=== PATIENT | male | born 1995 | race Caucasian/White ===

== ENCOUNTER 2023-01-09 22:08 | Emergency (ER) | payer OTHER ==
--- OUTSIDE RECORDS SUMMARY | 2023-01-09 22:11 | XMS REPORT | Continuity of Care Document ---
:1995 Author Organization [facility] t Address [address] [place] [address] [place] [id number] Care Team Providers Name Role Phone PCP, PATIENT DOES NOT HAVE A Primary Care Physician UnavailGABINO Grimes Attending Clinician Unavailable Gabino Womack MD Attending Clinician MIKE BALL Attending Clinician Unavailable Mike Ball MD Attending Clinician ESVIN TINAJERO Attending Clinician Unavailable Esvin Akbar Attending Clinician GABINO WOMACK Admitting Clinician Unavailable Payers Payer Name Policy Type Policy Number Effective Date Expiration Date S [place] MEDICAID GENERIC [id number] 2021 00:00:00 Problems Condition Condition Condition Status Onset Resolution Last Treating Co mments Source Name Details Category Date Date Treatment Clinician Date Asthma Asthma Disease Active Univers 5-08 ity of 00:00: [place] [facility] Obesity Obesity Disease Active Univers 2-17 ity of 00:00: [place] 00 [facility] Acne Acne Disease Active Univers 2-17 ity of 00:00: [place] 00 [facility] Ingrown Ingrown Disease Active Univers toenail toenail 2-17 ity of 00:00: 00 Medical Branch Allergies, Adverse Reactions, Alerts Allergy Allergy Status Severity Reaction(s) Onset Inactive Treating Comm ents Source Name Type Date Date Clinician Amoxicil Propensi Active Diarrhea Univ ers singh ty to 01-23 ity of adverse 00:00: [place] reaction 00 Medical s Branch AMOXICIL DRUG Active Diarrhea 2022-0 Univer s SINGH INGREDI 6-07 ity of 00:00: [place] 00 Medical Branch Minocycl Propensi Active Hives Univer s ine ty to 2-16 ity of adverse 00:00: [place] reaction 00 Medical s Branch Tetracyc Propensi Active Hives Univer s line ty to 2-16 ity of adverse 00:00: [place] reaction 00 Medical s Branch MINOCYCL DRUG Active Hives Univers INE INGREDI 2-16 ity of 00:00: [place] 00 Medical Branch TETRACYC DRUG Active Hives 2011- Univers LINE INGREDI 2-16 ity of 00:00: [place] 00 Medical Branch Social History Social Habit Start Date Stop Date Quantity Comments Source Exposure to 2022-09-30 2022-10-10 Not sure [facility] SARS-CoV-2 00:00:00 20:20:00 [facility] (event) Branch Alcohol intake 2022-02-27 2022-02-27 Current University 00:00:00 00:00:00 non-drinker of [facility] alcohol Branch (finding) Sex Ass[birth year] At [birth year] Universit y of 00:00:00 00:00:00 [facility] Smoking Status Start Date Stop Date Source Never smoked tobacco [facility] Medications Ordered Filled Start Stop Current Ordering Indication Dosage Frequency Signature Comments Components Source Medication Medication Date Date Medication? Clinician (SIG) Name Name benzonatate Yes [id number] 200mg Take 1 Univers 200 mg 2-22 capsule by ity of capsule 00:00: mouth 3 [place] 00 (three) Medical times Branch daily as needed for Cough. ibuprofen Yes [id number] 800mg Take 1 U nivers 800 mg 2-22 tablet by ity of tablet 00:00: mouth [place] 00 every 8 Medical (eight) Branch hours as needed for Pain (scale 4-6) or Temp > 38.5 C. meclizine 2021-08 No 25mg 25 mg, Unive rs (TRAVEL-EAS 0-13 10-13 Oral, ity of E 03:00: 03:09 ONCE, 1 [place] (MECLIZINE) 00 :00 dose, On [facility] ) tablet 25 Wed Branch mg 05/30/22 at 2200, AWILDA ketorolac 2021-08 No 30mg 30 mg, Unive rs (TORADOL) 0-13 10-13 Slow IV ity of injection 03:00: 02:09 Push, [place] 30 mg 00 :00 ONCE, 1 Medical dose, On Branch Sat05/30/22 at 2200, Routine cefTRIAXone 2021-08 No 500mg 500 mg, U nivers (ROCEPHIN) 0-13 10-13 Intramuscu it y of injection 02:45: 02:14 lar, ONCE, [place] 500 mg 00 :00 1 dose, On Medical Sat05/30/22 at 2145, AWILDA
Re ason for Anti-Infec tive: Empiric Therapy for Suspected Infection< br>Empiric Therapy Site: Urine
D uration of therapy: 72 hours azithromyci 2021-08 No 1000mg 1,000 mg, Univers n 0-13 10-13 Oral, ity of (ZITHROMAX) 02:00: 02:11 ONCE, 1 [place] tablet 00 :00 dose, On Medical 1,000 mg [facility] 05/30/22 at 2100, AWILDA
Re ason for Anti-Infec tive: Empiric Therapy for Suspected Infection< br>Empiric Therapy Site: Urine
D uration of therapy: 72 hours meclizine 2021-08 Yes [id number] 25mg Take 1 U nivers 25 mg 0-12 tablet by ity of tablet 00:00: mouth [place] 00 every 6 Medical (six) Branch hours. meclizine 2021-08 Yes [id number] 25mg Take 1 U nivers 25 mg 0-12 tablet by ity of tablet 00:00: mouth [place] 00 every 6 Medical (six) Branch hours. azithromyci 2021- No 500mg 500 mg, U nivers n 6-08 06-08 Oral, ity of (ZITHROMAX) 03:30: 03:39 ONCE, 1 [place] tablet 500 00 :00 dose, On Medic al mg [facility] 01/23/22 Branch at 2230, AWILDA
Re ason for Anti-Infec tive: Documented Infection< br>Documen amaya Infection Site: Urine
D uration of Therapy: 7 days cefTRIAXone Yes 500mg 500 mg, Un dewayne (ROCEPHIN) 6-08 Intramuscu ity of injection 03:15: lar, Q24H, [place] 500 mg 00 First dose Medical on Sat Branch 01/23/22 at 2215, Until Discontinu ed, AWILDA
Re ason for Anti-Infec tive: Empiric Therapy for Suspected Infection< br>Empiric Therapy Site: Urine<b r>Duration of therapy: 72 hours metroNIDAZO 2021- No [id number] 500mg Take 1 Univers LE 500 mg 01-23 06-15 tablet by ity of tablet 00:00: 04:59 mouth 2 [place] 00 :00 (two) Medical times Branch daily for 7 days. ibuprofen 2012-08 Yes [id number] 800mg Take 1 Tab Univers (MOTRIN) 0-17 by mouth 3 ity o f 800 mg 00:00: (three) [place] tablet 00 times Medical daily with Branch meals. ibuprofen 2012-08 Yes [id number] 800mg Take 1 Tab Univers (MOTRIN) 0-17 by mouth 3 ity o f 800 mg 00:00: (three) [place] tablet 00 times Medical daily with Branch meals. ibuprofen 2012-08 Yes [id number] 800mg Take 1 Tab Univers (MOTRIN) 0-17 by mouth 3 ity o f 800 mg 00:00: (three) [place] tablet 00 times Medical daily with Branch meals. fluticasone Yes [id number] 2{spray Use 2 Univers (FLONASE) 9-18 } Sprays in ity o f 50 00:00: each [place] mcg/actuati 00 nostril Medic al on nasal daily. Use Branc h spray alternate hand to administer albuterol Yes [id number] 2{puff} Inhale 2 Univers (VENTOLIN) 9-18 Puffs ity of 90 00:00: every 4 [place] mcg/actuati 00 (four) Medica l on inhaler hours as Branc h needed for Wheezing or Shortness of Breath. codeine-gua Yes [id number] 5mL Take 5 mL Univers ifenesin 9-18 by mouth ity of (ROBITUSSIN 00:00: every 6 [place] as AC) 10-100 00 (six) Medical mg/5 mL hours as Branch solution needed for Cough. fluticasone Yes [id number] 2{spray Use 2 Univers (FLONASE) 9-18 } Sprays in ity o f 50 00:00: each [place] mcg/actuati 00 nostril Medic al on nasal daily. Use Branc h spray alternate hand to administer albuterol Yes [id number] 2{puff} Inhale 2 Univers (VENTOLIN) 9-18 Puffs ity of 90 00:00: every 4 [place] mcg/actuati 00 (four) Medica l on inhaler hours as Branc h needed for Wheezing or Shortness of Breath. codeine-gua Yes [id number] 5mL Take 5 mL Univers ifenesin 9-18 by mouth ity of (ROBITUSSIN 00:00: every 6 [place] AC) 10-100 00 (six) Medical mg/5 mL hours as Branch solution needed for Cough. fluticasone Yes [id number] 2{spray Use 2 Univers (FLONASE) 9-18 } Sprays in ity o f 50 00:00: each [place] mcg/actuati 00 nostril Medic al on nasal daily. Use Branc h spray alternate hand to administer albuterol Yes [id number] 2{puff} Inhale 2 Univers (VENTOLIN) 9-18 Puffs ity of 90 00:00: every 4 [place] mcg/actuati 00 (four) Medica l on inhaler hours as Branc h needed for Wheezing or Shortness of Breath. codeine-gua Yes [id number] 5mL Take 5 mL Univers ifenesin 9-18 by mouth ity of (ROBITUSSIN 00:00: every 6 [place] AC) 10-100 00 (six) Medical mg/5 mL hours as Branch solution needed for Cough. azithromyci Yes [id number] 500mg Take 1 Tab Univers n 5-08 by mouth ity of (ZITHROMAX) 00:00: daily. [place] 500 mg 00 Medical tablet Branch codeine-gua Yes [id number] 5mL Take 5-10 Univers ifenesin 5-08 mL by ity of (CHERATUSSI 00:00: mouth [place] N AC) 00 every 6 Medical 10-100 mg/5 (six) Branch mL solution hours as needed for Cough. azithromyci Yes [id number] 500mg Take 1 Tab Univers n 5-08 by mouth ity of (ZITHROMAX) 00:00: daily. [place] 500 mg 00 Medical tablet Branch codeine-gua Yes [id number] 5mL Take 5-10 Univers ifenesin 5-08 mL by ity of (CHERATUSSI 00:00: mouth [place] N AC) 00 every 6 Medical 10-100 mg/5 (six) Branch mL solution hours as needed for Cough. azithromyci Yes [id number] 500mg Take 1 Tab Univers n 5-08 by mouth ity of (ZITHROMAX) 00:00: daily. [place] 500 mg 00 Medical tablet Branch codeine-gua Yes [id number] 5mL Take 5-10 Univers ifenesin 5-08 mL by ity of (CHERATUSSI 00:00: mouth [place] N AC) 00 every 6 Medical 10-100 mg/5 (six) Branch mL solution hours as needed for Cough. ibuprofen Yes 800mg Take 1 Tab U nivers (MOTRIN) 2-28 by mouth ity of 800 mg 00:00: every 8 [place] tablet 00 (eight) Medical hours as Branch needed for Pain (scale 4-6). ibuprofen Yes 800mg Take 1 Tab U nivers (MOTRIN) 2-28 by mouth ity of 800 mg 00:00: every 8 [place] tablet 00 (eight) Medical hours as Branch needed for Pain (scale 4-6). ibuprofen Yes 800mg Take 1 Tab U nivers (MOTRIN) 2-28 by mouth ity of 800 mg 00:00: every 8 [place] tablet 00 (eight) Medical hours as Branch needed for Pain (scale 4-6). albuterol Yes [id number] 2.5mg Inhale 0.5 Univers 2.5 mg/0.5 2-14 mL every 4 ity of mL 00:00: (four) [place] nebulizer 00 hours as Medica l solution needed for Branc h Wheezing or Shortness of Breath. albuterol Yes [id number] 2.5mg Inhale 0.5 Univers 2.5 mg/0.5 2-14 mL every 4 ity of mL 00:00: (four) [place] nebulizer 00 hours as Medica l solution needed for Branc h Wheezing or Shortness of Breath. albuterol Yes [id number] 2.5mg Inhale 0.5 Univers 2.5 mg/0.5 2-14 mL every 4 ity of mL 00:00: (four) [place] nebulizer 00 hours as Medica l solution needed for Branc h Wheezing or Shortness of Breath. fexofenadin Yes [id number] 180mg Take 1 Tab Univers e (DOMONIQUE) 1-04 by mouth ity of 180 mg 00:00: daily. [place] tablet [facility] fexofenadin Yes [id number] 180mg Take 1 Tab Univers e (DOMONIQUE) 1-04 by mouth ity of 180 mg 00:00: daily. [place] tablet [facility] fexofenadin Yes [id number] 180mg Take 1 Tab Univers e (DOMONIQUE) 1-04 by mouth ity of 180 mg 00:00: daily. [place] tablet [facility] Immunizations Ordered Filled Immunization Date Status Comments [facility] e Immunization Name Name Influenza Virus 2013-06-04 Completed Universit y of Vaccine (3+ yrs) 00:00:00 [facility] Influenza Virus 2013-06-04 Completed Universit y of Vaccine (3+ yrs) 00:00:00 [facility] Influenza Virus 2013-06-04 Completed Universit y of Vaccine (3+ yrs) 00:00:00 [facility] TDAP (ADACEL) 2013-04-10 Completed University of VACCINE 00:00:00 [facility] TDAP (ADACEL) 2013-04-10 Completed University of VACCINE 00:00:00 [facility] TDAP (ADACEL) 2013-04-10 Completed University of VACCINE 00:00:00 [facility] Influenza Virus 2012-05-26 Completed Universit y of Vaccine 00:00:00 [facility] Influenza Virus 2012-05-26 Completed Universit y of Vaccine 00:00:00 [facility] Influenza Virus 2012-05-26 Completed Universit y of Vaccine 00:00:00 [facility] Vital Signs Vital Name Observation Time Observation Value Comments Source Systolic blood 2022-10-11 02:21:00 138 mm[Hg] Univer sity of pressure [facility] Diastolic blood 2022-10-11 02:21:00 84 mm[Hg] Unive rsity of pressure [place] [facility] Heart rate 2022-10-11 02:21:00 81 /min [facility] [place] [facility] Body temperature 2022-10-11 02:21:00 37 Dianna Univ ersity of [place] [facility] Respiratory rate 2022-10-11 02:21:00 20 /min Univ ersity of [place] [facility] Body height 2022-10-11 02:21:00 177.8 cm [facility] [place] [facility] Body weight 2022-10-11 02:21:00 127.007 kg [facility] [place] [facility] BMI 2022-10-11 02:21:00 40.18 kg/m2 Universi ty of [place] [facility] Oxygen saturation in 2022-10-11 02:21:00 98 /min University of Arterial blood by [place] [employer] [facility] Pulse oximetry Branch Systolic blood 2022-05-31 04:00:00 120 mm[Hg] Univer sity of pressure [place] [facility] Diastolic blood 2022-05-31 04:00:00 68 mm[Hg] Unive rsity of pressure [place] [facility] Heart rate 2022-05-31 04:00:00 72 /min Universi ty of [place] [facility] Oxygen saturation in 2022-05-31 04:00:00 100 /min University of Arterial blood by [place] [employer] [facility] Pulse oximetry Branch Respiratory rate 2022-05-31 03:45:00 18 /min Univ ersity of [place] [facility] Body temperature 2022-05-31 01:20:00 36.72 Dianna Univ ersity of [place] [facility] Body height 2022-05-31 01:18:00 177.8 cm Universi ty of [place] [facility] Body weight 2022-05-31 01:18:00 127.007 kg [facility] [place] [facility] BMI 2022-05-31 01:18:00 40.18 kg/m2 [facility] [place] [facility] BMI 2022-01-24 01:27:00 39.05 kg/m2 [facility] [place] [facility] Oxygen saturation in 2022-01-24 01:27:00 96 /min University of Arterial blood by [place] [employer] [facility]ac Pulse oximetry Branch Systolic blood 2022-01-24 01:27:00 163 mm[Hg] Univer sity of pressure [place] [facility] Diastolic blood 2022-01-24 01:27:00 80 mm[Hg] Unive rsity of pressure [facility] Heart rate 2022-01-24 01:27:00 68 /min [facility] Body temperature 2022-01-24 01:27:00 36.67 Dianna [facility] Respiratory rate 2022-01-24 01:27:00 20 /min [facility] Body height 2022-01-24 01:27:00 180.3 cm [facility] Body weight 2022-01-24 01:27:00 127.007 kg [facility] Procedures Procedure Date / Time Performed Performing Clinician Sour e RAPID INFLUENZA A/B 2022-10-11 02:26:00 Gabino Womack [facility] COVID-19 (ID NOW RAPID 2022-10-11 02:26:00 Gabino Womack [facility] TESTING) Medical Branch NOTICE OF PRIVACY 2022-10-11 02:10:30 Doctor Unassigned, No [facility] Medical [place] CONSENT/REFUSAL FOR 2022-10-11 02:10:04 Doctor Unassigned, No Un iversity of [place] DIAGNOSIS AND Name Medical Branch TREATMENT COMP. METABOLIC PANEL 2022-05-31 02:09:00 [facility] ([id number]) Medical [place] CBC WITH DIFF 2022-05-31 02:09:00 [facility] URINALYSIS 2022-05-31 02:09:00 [facility] CONSENT/REFUSAL FOR 2022-05-31 01:05:43 Doctor Unassigned, No [facility] [place] DIAGNOSIS AND Name Medical Branch TREATMENT URINALYSIS 2022-01-24 03:27:00 Esvin Tinajero [facility] ASSIGNMENT OF BENEFITS 2022-01-24 01:05:13 Doctor Unassigned, No [facility] Medical Branch CONSENT/REFUSAL FOR 2022-01-24 01:04:57 Doctor Unassigned, No Un [facility] [place] DIAGNOSIS AND Name Medical Branch TREATMENT Encounters Start End Encounter Admission Attending Care Care Encounter Source Date/Time Date/Time Type Type Clinicians Facility Department ID 2022-10-10 2022-10-10 Emergency X JUAN ALBERTO [facility] ERT [id number] Univers 20:27:00 23:59:[address] [facility] 2022-10-10 2022-10-10 Emergency Juan Alberto [facility] [id number] Univers 20:27:00 23:59:00 Andrew Teressa HENDERSON [id number] ity [facility] [id number] [facility] [id number] [address] 2022-05-30 2022-05-30 Emergency X MARGARITA [facility] ERT [id number] Univers 20:19:00 23:28:00 [facility] 2022-05-30 2022-05-30 Emergency Margarita [facility] [id number] Univers 20:19:00 23:28:00 [facility] [id number] it [facility] [id number] [facility] [id number] [address] ([facility]) 2022-01-23 2022-01-23 Emergency X COLLIN [facility] ERT [id number] Univers 20:29:00 22:56:[address] [facility] 2022-01-23 2022-01-23 [facility] [id number] Univers 20:29:00 22:56:00 [facility] [employer] [id number] ity [facility] [id number] [facility] [id number] [address] ([facility]) Results Test Description Test Time Test Comments Results Result Comments Source COMP. METABOLIC PANEL (22686) 2022-05-31 02:25:34 Test Item Value Reference Range Interpretation Comme nts NA (test code = 2261043408) 140 mmol/L 135-145 K (test code = 9598987445) 4.3 mmol/L 3.5-5 CL (test code = 5084701223) 107 mmol/L 98-108 CO2 TOTAL (test code = 25 mmol/L 23-31 0323941390) AGAP (test code = 9270765546) 2-16 BUN (test code = 6198356185) 16 mg/dL 7-23 GLUCOSE (test code = 8160576687) 84 mg/dL 70-110 CREATININE (test code = 0.90 mg/dL 0.6-1.25 5545618104) TOTAL BILI (test code = 0.6 mg/dL 0.1-1.2 3844135106) CALCIUM (test code = 9946598556) 9.5 mg/dL 8.6-10.6 T PROTEIN (test code = 6.8 g/dL 6.3-8.2 0740481417) ALBUMIN (test code = 8636478234) 4.4 g/dL 3.5-5 ALK PHOS (test code = 6158053585) 58 U/L 34-122 ALTv (test code = 1742-6) 36 U/L 5-50 AST(SGOT) (test code = 38 U/L 13-40 4366100175) eGFR (test code = 5318643829) mL/min/1.73m2 FRANSISCO (test code = FRANSISCO) Association of Glomerular Filtration Rate (GFR) and Staging of Kidney Disease* + +--------- + ----+| GFR (mL/min/1.73 m2) ?| With Kidney Damage ?| ?Without Kidney Damage+ +--- + +| ?>90 ?| ?Stage one ?| ? Normal ?+ +-------- + -----+| ?60-89 ?| ?Stage two ?| ? Decreased GFR ? + +--------- + ----+| ?30-59 ?| ?Stage three ?| ? Stage three ? + +--------- + ----+| ?15-29 ?| ?Stage four ? | ? Stage four ?+ +-------- + -----+| ?<15 (or dialysis) ? ?| ?Stage five ? | ? Stage five ?+ +-------- + -----+ *Each stage assumes the associated GFR level has been in effect for at least three months. ?Stages 1 to 5, with or without kidney disease, indicate chronic kidney disease. Notes: Determination of stages one and two (with eGFR >59mL/min/1.73 m2) requires estimation of kidney damage for at least three months as defined by structural or functional abnormalities of the kidney, manifested by either:Pathological abnormalities or Markers of kidney damage (including abnormalities in the composition of the blood or urine or abnormalities in imaging tests). [facility] WITH [id number] 02:16:35 Test Item Value Reference Range Interpretation Comments WBC (test code = See_Comment [Automated 6690-2) message] The sy stem which generated this result transmitted reference range : 4.20 - 10.70 10*3/?L. The reference range was not used to interpret this result as normal/abnormal . RBC (test code = See_Comment [Automated 789-8) message] The sy stem which generated this result transmitted reference range : 4.26 - 5.52 10*6/?L. The reference range was not used to interpret this result as normal/abnormal . HGB (test code = 15.1 g/dL 12.2-16.4 718-7) HCT (test code = 41.6 % 38.4-49.3 4544-3) MCV (test code = 93.3 fL 81.7-95.6 787-2) MCH (test code = 33.9 pg 26.1-32.7 H 785-6) MCHC (test code = 36.3 g/dL 31.2-35 H 786-4) RDW-SD (test code = 41.4 fL 38.5-51.6 19280-9) RDW-CV (test code = 12.3 % 12.1-15.4 788-0) PLT (test code = See_Comment [Automated 777-3) message] The sy stem which generated this result transmitted reference range : 150 - 328 10*3/ ?L. The reference r josé miguel was not used to interpret this result as normal/abnormal . MPV (test code = 10.3 fL 9.8-13 38152-2) NRBC/100 WBC (test See_Comment [Automat ed code = 7646167108) message] The system which generated this result transmitted reference range : 0.0 - 10.0 /100 WBCs. The refer ence range was not u sed to interpret th is result as normal/abnormal . NRBC x10^3 (test code See_Comment [Auto mated = 4281812281) message] The s ystem which generated this result transmitted reference range : 10*3/?L. The reference range was not used to interpret this result as normal/abnormal . GRAN MAT (NEUT) % 59.3 % (test code = 770-8) IMM GRAN % (test code 0.40 % = 9760047157) LYMPH % (test code = 26.5 % 736-9) MONO % (test code = 7.5 % 5905-5) EOS % (test code = 5.2 % 713-8) BASO % (test code = 1.1 % 706-2) GRAN MAT x10^3(ANC) 4.35 10*3/uL 1.99-6.95 (test code = 4785161675) IMM GRAN x10^3 (test 0.03 10*3/uL 0-0.06 code = 5617986573) LYMPH x10^3 (test code 1.94 10*3/uL 1.09-3.23 = 731-0) MONO x10^3 (test code 0.55 10*3/uL 0.36-1.02 = 742-7) EOS x10^3 (test code = 0.38 10*3/uL 0.06-0.53 711-2) BASO x10^3 (test code 0.08 10*3/uL 0.01-0.09 = 704-7) Lab Interpretation Abnormal (test code = 84063-0) [facility]"
--- NOTE | 2023-01-09 22:21 | EDPHYS ---
Physician Documentation [facility] Name: Daniel Coronel Age: 27 yrs Sex: Male : 1995 Arrival Date: 01/09/2023 Time: 22:08 Bed Waiting Private MD: ED Physician Reed Castillo HPI: 01/09 22:43 This 27 yrs old Male presents to ER via Unassigned with complaints of Sore Throat. kb 22:43 The patient presents with sore throat. The patient describes throat pain as constant. kb Onset: The symptoms/episode began/occurred 5 day(s) ago. Severity of symptoms: At their worst the symptoms were moderate, in the emergency department the symptoms are actually worse. Modifying factors: The symptoms are alleviated by nothing, the symptoms are aggravated by swallowing, Patient's oral intake status: good. Associated signs and symptoms: Pertinent positives: Sore throat. The patient has experienced similar episodes in the past, several times. The patient has not recently seen a physician. Pt reports recurrent tonsillitis, last episode 3 weeks ago. This pain started 5 days ago and has gotten worse. Historical: - Allergies: 22:45 Amoxicillin; ha1 22:45 TETRACYCLINES; ha1 - Home Meds: 22:45 choestyramine [Active]; ha1 - PMHx: 22:45 Irritable bowel syndrome; ha1 - PSHx: 22:45 Cholecystectomy; gastric sleeve; ha1 - Immunization history:: Adult Immunizations unknown. - Social history:: Smoking status: unknown. ROS: 22:41 Constitutional: Negative for fever, chills, and weight loss. kb 22:41 ENT: Positive for sore throat. 22:41 All other systems are negative. Exam: 22:41 Constitutional: This is a well developed, well nourished patient who is awake, alert, kb and in no acute distress. Head/Face: Normocephalic, atraumatic. Cardiovascular: Regular rate and rhythm with a normal S1 and S2. No gallops, murmurs, or rubs. No pulse deficits. Respiratory: Respirations even and unlabored. No increased work of breathing. Talking in full sentences Abdomen/GI: Soft, non-tender. No distention Skin: Warm, dry with normal turgor. Normal color. MS/ Extremity: Pulses equal, no cyanosis. Neurovascular intact. Full, normal range of motion. Neuro: Awake and alert, GCS 15, oriented to person, place, time, and situation. Moves all extremities. Normal gait. 22:41 ENT: Posterior pharynx: Airway: normal, no evidence of obstruction, Tonsils: bilaterally enlarged, with erythema, Uvula: normal, midline, swelling, that is mild, erythema, that is moderate. Vital Signs: 22:42 BP 129 / 76; Pulse 84; Resp 18 S; Pulse Ox 100% on R/A; Weight 127.01 kg; Height 5 ft. ha1 10 in. ; 22:42 Body Mass Index 40.18 (127.01 kg, 177.8 cm) ha1 MDM: 22:15 Patient medically screened. kb 22:41 Differential diagnosis: pharyngitis, tonsillitis, strep. Data reviewed: vital signs, kb nurses notes. Counseling: I had a detailed discussion with the patient and/or guardian regarding: the historical points, exam findings, and any diagnostic results supporting the discharge/admit diagnosis, the need for outpatient follow up, a family practitioner, to return to the emergency department if symptoms worsen or persist or if there are any questions or concerns that arise at home. Administered Medications: No medications were administered Disposition Summary: 01/09/23 22:21 Discharge Ordered Location: Home kb Condition: Stable kb Diagnosis - Acute tonsillitis, unspecified kb Followup: kb - With: Emergency Department - When: As needed - Reason: Worsening of condition Followup: kb - With: Private Physician - When: 2 - 3 days - Reason: Recheck today's complaints, Continuance of care, Re-evaluation by your physician Discharge Instructions: - Discharge Summary Sheet kb - Tonsillitis, [id number] kb Forms: - Medication Reconciliation Form kb - Thank You Letter kb - Antibiotic Education kb - Prescription Opioid Use kb Prescriptions: - Zithromax 500 mg Oral Tablet - take 1 tablet by ORAL route once daily for 5 days; 5 tablet; Refills: 0, kb Product Selection Permitted Signatures: Katherine Fernandes FNP-C FNP-Irena Diamond RN RN ha1
--- NOTE | 2023-01-09 22:50 | ER ---
Nurse's Notes [facility] Name: Daniel Coronel Age: 27 yrs Sex: Male : 1995 Arrival Date: 01/09/2023 Time: 22:08 Bed Waiting Private MD: Diagnosis: Acute tonsillitis, unspecified Presentation: 01/09 22:42 Chief complaint: Patient states: I have had a sore throat for the past five days and it ha1 id bothering me. Coronavirus screen: Vaccine status: Patient reports being unvaccinated. Ebola Screen: No symptoms or risks identified at this time. Initial Sepsis Screen: Does the patient meet any 2 criteria? No. Patient's initial sepsis screen is negative. Does the patient have a suspected source of infection? No. Patient's initial sepsis screen is negative. Risk Assessment: Do you want to hurt yourself or someone else? Patient reports no desire to harm self or others. Onset of symptoms was January 09, 2023. 22:42 Method Of Arrival: Ambulatory ha1 22:42 Acuity: ALY 5 ha1 Triage Assessment: 22:45 General: Appears comfortable, Behavior is calm, cooperative. Pain: Complains of pain in ha1 throat Pain does not radiate. Pain currently is 6 out of 10 on a pain scale. Quality of pain is described as burning. EENT: Oral mucosa is moist. Neuro: Level of Consciousness is awake, alert, obeys commands, Oriented to person, place, time, situation. Cardiovascular: Capillary refill < 3 seconds Patient's skin is warm and dry. Respiratory: Airway is patent Respiratory effort is even, unlabored, Respiratory pattern is regular, symmetrical. GI: No signs and/or symptoms were reported involving the gastrointestinal system. Abdomen is non-distended, obese. : No signs and/or symptoms were reported regarding the genitourinary system. Musculoskeletal: Circulation, motion, and sensation intact. Range of motion: intact in all extremities. Historical: - Allergies: 22:45 Amoxicillin; ha1 22:45 TETRACYCLINES; ha1 - Home Meds: 22:45 choestyramine [Active]; ha1 - PMHx: 22:45 Irritable bowel syndrome; ha1 - PSHx: 22:45 Cholecystectomy; gastric sleeve; ha1 - Immunization history:: Adult Immunizations unknown. - Social history:: Smoking status: unknown. Screenin:47 [facility] ED Fall Risk Assessment (Adult) History of falling in the last 3 months, ha1 including since admission No falls in past 3 months (0 pts) Confusion or Disorientation No (0 pts) Intoxicated or Sedated No (0 pts) Impaired Gait No (0 pts) Mobility Assist Device Used No (0 pt) Altered Elimination No (0 pt) Score/Fall Risk Level 0 - 2 = Low Risk Oriented to surroundings, Maintained a safe environment, Educated pt \T\ family on fall prevention, incl call for assistance when getting out of bed. Abuse screen: Denies threats or abuse. Denies injuries from another. Nutritional screening: No deficits noted. Tuberculosis screening: No symptoms or risk factors identified. Assessment: 22:48 EENT: Throat is reddened. ha1 22:48 Respiratory: Airway is patent Respiratory effort is even, unlabored, Respiratory ha1 pattern is regular, symmetrical, Breath sounds are clear bilaterally. Vital Signs: 22:42 BP 129 / 76; Pulse 84; Resp 18 S; Pulse Ox 100% on R/A; Weight 127.01 kg; Height 5 ft. ha1 10 in. ; 22:42 Body Mass Index 40.18 (127.01 kg, 177.8 cm) ha1 ED Course: 22:11 Patient arrived in ED. ja2 22:15 Katherine Fernandes [facility]-C [facility]. kb 22:15 Reed Castillo MD is Attending Physician. kb 22:42 Irena Fan, MARIA VICTORIA is Primary Nurse. ha1 22:45 Triage completed. ha1 22:47 Arm band placed on right wrist. ha1 22:47 No provider procedures requiring assistance completed. Patient did not have IV access ha1 during this emergency room visit. 22:48 Patient has correct armband on for positive identification. Adult w/ patient. ha1 Administered Medications: No medications were administered Medication: 22:48 VIS not applicable for this client. ha1 Outcome: 22:21 Discharge ordered by . kb 22:48 Discharged to home ambulatory, with family. ha1 22:48 Condition: stable 22:48 Discharge instructions given to patient, family, Instructed on discharge instructions, follow up and referral plans. medication usage, Demonstrated understanding of instructions, follow-up care, medications, Prescriptions given X 1. 22:49 Patient left the ED. ha1 Signatures: Katherine Fernandes, FILLING SEPARATOR-C FILLING SEPARATOR-Ckb Aziza Hester Heidy, RN RN ha1
[2023-01-09 23:03] VITALS: BP 129/76; O2SAT 100
== END 2023-01-09 22:49 | disposition home or self-care (01) ==
LOC: ER 22:08
DX: J03.90 Acute tonsillitis, unspecified (principal); Z88.1 Allergy status to other antibiotic agents

== ENCOUNTER 2023-04-03 09:54 | Emergency (ER) | payer OTHER ==
--- OUTSIDE RECORDS SUMMARY | 2023-04-03 09:58 | XMS REPORT | Continuity of Care Document ---
:1995 Author Organization [facility] t Address [address] [place] [address] [address] [place] [address] Care Team Providers Name Role Phone PCP, PATIENT DOES NOT HAVE A Primary Care Physician UnavailGABINO Grimes Attending Clinician Unavailable Gabino Womack MD Attending Clinician MIKE BALL Attending Clinician Unavailable Mike Ball MD Attending Clinician ESVIN TINAJERO Attending Clinician Unavailable Esvin Akbar Attending Clinician GABINO WOMACK Admitting Clinician Unavailable Payers Payer Name Policy Type Policy Number Effective Date Expiration Date [place] MEDICAID GENERIC [id number] 2021 00:00:00 Problems Condition Condition Condition Status Onset Resolution Last Treating Co mments Source Name Details Category Date Date Treatment Clinician Date Asthma Asthma Disease Active Univers 5-08 ity of 00:00: [place] [facility] Obesity Obesity Disease Active Univers 2-17 ity of 00:00: [place] [facility] Acne Acne Disease Active Univers 2-17 ity of 00:00: [place] [facility] Ingrown Ingrown Disease Active Univers toenail toenail 2-17 ity of 00:00: [place] 00 Medical Branch Allergies, Adverse Reactions, Alerts Allergy Allergy Status Severity Reaction(s) Onset Inactive Treating Comm ents Source Name Type Date Date Clinician Amoxicil Propensi Active Diarrhea Univ ers singh ty to 6-07 ity of adverse 00:00: [place] reaction 00 Medical s Branch AMOXICIL DRUG Active Diarrhea Univer s SINGH INGREDI 6-07 ity of [...] 00 Medical Branch TETRACYC DRUG Active Hives Univers LINE INGREDI 2-16 ity of 00:00: [place] 00 Medical [facility] Social History Social Habit Start Date Stop Date Quantity Comments Source Exposure to 2022-09-30 2022-10-10 Not sure [facility] SARS-CoV-2 00:00:00 20:20:00 [facility] (event) Branch Alcohol intake 2022-02-27 2022-02-27 Current [facility] 00:00:00 00:00:00 non-drinker of [facility] alcohol Branch (finding) Sex Ass[birth year] At [birth year] Universit y of 00:00:00 00:00:00 [facility] Smoking Status Start Date Stop Date Source Never smoked tobacco [facility] Medications Ordered Filled Start Stop Current Ordering Indication Dosage Frequency Signature Comments Components Source Medication Medication Date Date Medication? Clinician (SIG) Name Name benzonatate Yes [id number] 200mg Take 1 Univers 200 mg 2-22 capsule by ity of capsule 00:00: mouth 3 [place] 00 (three) Medical times Branch daily as needed for Cough. ibuprofen Yes [id number] 800mg Take 1 U nivers 800 mg 2-22 tablet by ity of tablet 00:00: mouth [place] 00 every 8 Medical (eight) Branch hours as needed for Pain (scale 4-6) or Temp > 38.5 C. meclizine 2021-08 No 25mg 25 mg, Unive rs (TRAVEL-EAS 0-13 05-31 Oral, ity of E 03:00: 03:09 ONCE, 1 [place] (MECLIZINE) 00 :00 dose, On [facility] ) tablet 25 Wed Branch mg 05/30/22 at 2200, AWILDA ketorolac 2021-08 No 30mg 30 mg, Unive rs (TORADOL) 0-13 10-13 Slow IV ity of injection 03:00: 02:09 Push, [place] 30 mg 00 :00 ONCE, 1 Medical dose, On Branch 05/30/22 at 2200, Routine cefTRIAXone 2021-08 No 500mg 500 mg, U nivers (ROCEPHIN) 0-13 10-13 Intramuscu it y of injection 02:45: 02:14 lar, ONCE, [place] 500 mg 00 :00 1 dose, On Medical Wed Branch 05/30/22 at 2145, AWILDA
Re ason for Anti-Infec tive: Empiric Therapy for Suspected Infection< br>Empiric Therapy Site: Urine
D uration of therapy: 72 hours azithromyci 2021-08 No 1000mg 1,000 mg, Univers n 0-13 10-13 Oral, ity of (ZITHROMAX) 02:00: 02:11 ONCE, 1 [place] tablet 00 :00 dose, On Medical 1,000 mg [facility] 05/30/22 at 2100, AWILDA
Re ason for Anti-Infec tive: Empiric Therapy for Suspected Infection< br>Empiric Therapy Site: Urine
D uration of therapy: 72 hours meclizine 2021-08 Yes [id number] 25mg Take 1 U nivers 25 mg 0-12 tablet by ity of tablet 00:00: mouth [place] 00 every 6 Medical (six) Branch hours. meclizine 2021-08 Yes [id number] 25mg Take 1 U nivers 25 mg 0-12 tablet by ity of tablet 00:00: mouth [place] 00 every 6 Medical (six) Branch hours. azithromyci No 500mg 500 mg, U nivers n 6-08 06-08 Oral, ity of (ZITHROMAX) 03:30: 03:39 ONCE, 1 [place] tablet 500 00 :00 dose, On Medic al mg [facility] 01/23/22 Branch at 2230, AWILDA
Re [...] of therapy: 72 hours metroNIDAZO 2021- No [id number] 500mg Take 1 Univers LE 500 mg 01-23 06-15 tablet by ity of tablet 00:00: 04:59 mouth 2 [place] 00 :00 (two) Medical times Branch daily for 7 days. ibuprofen 2012-08 Yes [id number] 800mg Take 1 Tab Univers (MOTRIN) 0-17 by mouth 3 ity o f 800 mg 00:00: (three) [place] tablet 00 times Medical daily with Branch meals. ibuprofen 2012-08 Yes [id number] 800mg Take 1 Tab Univers (MOTRIN) 0-17 by mouth 3 ity o f 800 mg 00:00: (three) [place] tablet 00 times Medical daily with Branch meals. ibuprofen 2012-08 Yes [id number] 800mg Take 1 Tab Univers (MOTRIN) 0-17 by mouth 3 ity o f 800 mg 00:00: (three) [place] tablet 00 times Medical daily with Branch meals. fluticasone Yes [id number] 2{spray Use 2 Univers (FLONASE) 9-18 } Sprays in ity o f 50 00:00: each [place] mcg/actuati 00 nostril Medic al on nasal daily. Use Branc h spray alternate hand to administer albuterol Yes [id number] 2{puff} Inhale 2 Univers (VENTOLIN) 9-18 Puffs ity of 90 00:00: every 4 [place] mcg/actuati 00 (four) Medica l on inhaler hours as Branc h needed for Wheezing or Shortness of Breath. codeine-gua Yes [id number] 5mL Take 5 mL Univers ifenesin 9-18 by mouth ity of (ROBITUSSIN 00:00: every 6 [place] as AC) 10-100 00 (six) Medical mg/5 mL hours as Branch solution needed for Cough. fluticasone Yes [id number] 2{spray Use 2 Univers (FLONASE) 9-18 } Sprays in ity o f 50 00:00: each [place] mcg/actuati 00 nostril Medic al on nasal daily. Use Branc h spray alternate hand to administer albuterol Yes [id number] 2{puff} Inhale 2 Univers (VENTOLIN) 9-18 Puffs ity of 90 00:00: every 4 [place] mcg/actuati 00 (four) Medica l on inhaler hours as Branc h needed for Wheezing or Shortness of Breath. codeine-gua Yes [id number] 5mL Take 5 mL Univers ifenesin 9-18 by mouth ity of (ROBITUSSIN 00:00: every 6 [place] AC) 10-100 00 (six) Medical mg/5 mL hours as Branch solution needed for Cough. fluticasone Yes [id number] 2{spray Use 2 Univers (FLONASE) 9-18 } Sprays in ity o f 50 00:00: each [place] mcg/actuati 00 nostril Medic al on nasal daily. Use Branc h spray alternate hand to administer albuterol Yes [id number] 2{puff} Inhale 2 Univers (VENTOLIN) 9-18 Puffs ity of 90 00:00: every 4 [place] mcg/actuati 00 (four) Medica l on inhaler hours as Branc h needed for Wheezing or Shortness of Breath. codeine-gua Yes [id number] 5mL Take 5 mL Univers ifenesin 9-18 by mouth ity of (ROBITUSSIN 00:00: every 6 [place] AC) 10-100 00 (six) Medical mg/5 mL hours as Branch solution needed for Cough. azithromyci Yes [id number] 500mg Take 1 Tab Univers n 5-08 by mouth ity of (ZITHROMAX) 00:00: [place]. [place] 500 mg 00 Medical tablet Branch codeine-gua Yes [id number] 5mL Take 5-10 Univers ifenesin 5-08 mL by ity of (CHERATUSSI 00:00: mouth [place] N AC) 00 every 6 Medical 10-100 mg/5 (six) Branch mL solution hours as needed for Cough. azithromyci Yes [id number] 500mg Take 1 Tab Univers n 5-08 by mouth ity of (ZITHROMAX) 00:00: daily. [place] 500 mg 00 Medical tablet Branch codeine-gua Yes [id number] 5mL Take 5-10 Univers ifenesin 5-08 mL by ity of (CHERATUSSI 00:00: mouth [place] N AC) 00 every 6 Medical 10-100 mg/5 (six) Branch mL solution hours as needed for Cough. azithromyci Yes [id number] 500mg Take 1 Tab Univers n 5-08 by mouth ity of (ZITHROMAX) 00:00: daily. [place] 500 mg 00 Medical tablet Branch codeine-gua Yes [id number] 5mL Take 5-10 Univers ifenesin 5-08 mL [...] needed for Pain (scale 4-6). albuterol Yes [id number] 2.5mg Inhale 0.5 Univers 2.5 mg/0.5 2-14 mL every 4 ity of mL 00:00: (four) [place] nebulizer 00 hours as Medica l solution needed for Branc h Wheezing or Shortness of Breath. albuterol Yes [id number] 2.5mg Inhale 0.5 Univers 2.5 mg/0.5 2-14 mL every 4 ity of mL 00:00: (four) [place] nebulizer 00 hours as Medica l solution needed for Branc h Wheezing or Shortness of Breath. albuterol Yes [id number] 2.5mg Inhale 0.5 Univers 2.5 mg/0.5 2-14 mL every 4 ity of mL 00:00: (four) [place] nebulizer 00 hours as Medica l solution needed for Branc h Wheezing or Shortness of Breath. fexofenadin Yes [id number] 180mg Take 1 Tab Univers e (DOMONIQUE) 1-04 by mouth ity of 180 mg 00:00: daily. [place] tablet [facility] fexofenadin Yes [id number] 180mg Take 1 Tab Univers e (DOMONIQUE) 1-04 by mouth ity of 180 mg 00:00: daily. [place] tablet [facility] fexofenadin Yes [id number] 180mg Take 1 Tab Univers e (DOMONIQUE) 1-04 by mouth ity of 180 mg 00:00: daily. [place] tablet [facility] Immunizations Ordered Filled Immunization Date Status Comments [facility] e Immunization Name Name Influenza Virus 2013-06-04 Completed Universit y of Vaccine (3+ yrs) 00:00:00 [facility] Influenza Virus 2013-06-04 Completed Universit y of Vaccine (3+ yrs) 00:00:00 [facility] Influenza Virus 2013-06-04 Completed Universit y of Vaccine (3+ yrs) 00:00:00 [facility] TDAP (ADACEL) 2013-04-10 Completed University of VACCINE 00:00:00 [facility] TDAP (ADACEL) 2013-04-10 Completed University of VACCINE 00:00:00 [facility] TDAP (ADACEL) 2013-04-10 Completed University of VACCINE 00:00:00 [facility] Influenza Virus 2012-05-26 Completed Universit y of Vaccine 00:00:00 [facility] Influenza Virus 2012-05-26 Completed Universit y of Vaccine 00:00:00 [facility] Influenza Virus 2012-05-26 Completed Universit y of Vaccine 00:00:00 [facility] Vital Signs Vital Name Observation Time Observation Value Comments Source Systolic blood 2022-10-11 02:21:00 138 mm[Hg] Univer sity of pressure [place] [facility] Diastolic blood 2022-10-11 02:21:00 84 mm[Hg] Unive rsity of pressure [place] [facility] Heart rate 2022-10-11 02:21:00 81 /min Universi ty of [place] [facility] Body temperature 2022-10-11 02:21:00 37 Dianna Univ ersity of [place] [facility] Respiratory rate 2022-10-11 02:21:00 20 /min Univ ersity of [place] [facility] Body height 2022-10-11 02:21:00 177.8 cm Universi ty [facility] [place] [facility] Body weight 2022-10-11 02:21:00 127.007 kg [facility]i ty [facility] [place] [facility] BMI 2022-10-11 02:21:00 40.18 kg/m2 Universi ty of [place] [facility] Oxygen saturation in 2022-10-11 02:21:00 98 /min University of Arterial blood by [place] Occasion isaac Pulse oximetry Branch Systolic blood 2022-05-31 04:00:00 120 mm[Hg] Univer sity of pressure [place] [facility] Diastolic blood 2022-05-31 04:00:00 68 mm[Hg] Unive rsity of pressure [place] [facility] Heart rate 2022-05-31 04:00:00 72 /min Universi ty of [place] [facility] Oxygen saturation in 2022-05-31 04:00:00 100 /min University of Arterial blood by [place] Occasion isaac Pulse oximetry Branch Respiratory rate 2022-05-31 03:45:00 18 /min Univ ersity of [place] [facility] Body temperature 2022-05-31 01:20:00 36.72 Dianna Univ [facility] [place] [facility] Body height 2022-05-31 01:18:00 177.8 cm Universi ty [facility] [place] [facility] Body weight 2022-05-31 01:18:00 127.007 kg [facility] [place] [facility] BMI 2022-05-31 01:18:00 40.18 kg/m2 [facility] [place] [facility] BMI 2022-01-24 01:27:00 39.05 kg/m2 [facility] [place] [facility] Oxygen saturation in 2022-01-24 01:27:00 96 /min University of Arterial blood by [employer] isaac Pulse oximetry Branch Systolic blood 2022-01-24 01:27:00 163 mm[Hg] Univer sity of pressure [place] [facility] Diastolic blood 2022-01-24 01:27:00 80 mm[Hg] [facility] [place] [facility] Heart rate 2022-01-24 01:27:00 68 /min [facility] Body temperature 2022-01-24 01:27:00 36.67 Dianna [facility] Respiratory rate 2022-01-24 01:27:00 20 /min [facility] Body height 2022-01-24 01:27:00 180.3 cm [facility] Body weight 2022-01-24 01:27:00 127.007 kg [facility] Procedures Procedure Date / Time Performed Performing Clinician Sour e RAPID INFLUENZA A/B 2022-10-11 02:26:00 Gabino Womack [facility] COVID-19 (ID NOW RAPID 2022-10-11 02:26:00 Gabino Womack [facility] TESTING) Medical Branch NOTICE OF PRIVACY 2022-10-11 02:10:30 Doctor Unassigned, No [facility] PRACTICES Name Medical Branch CONSENT/REFUSAL FOR 2022-10-11 02:10:04 Doctor Unassigned, No [facility] [place] DIAGNOSIS AND Name Medical Branch TREATMENT COMP. METABOLIC PANEL 2022-05-31 02:09:00 [facility] ([id number]) Medical Branch CBC WITH DIFF 2022-05-31 02:09:00 [facility] URINALYSIS 2022-05-31 02:09:00 [facility] CONSENT/REFUSAL FOR 2022-05-31 01:05:43 Doctor Unassigned, No [facility] [place] DIAGNOSIS AND Name Medical Branch TREATMENT URINALYSIS 2022-01-24 03:27:00 Esvin Tinajero [facility] ASSIGNMENT OF BENEFITS 2022-01-24 01:05:13 Doctor Unassigned, No [facility] Name Medical Branch CONSENT/REFUSAL FOR 2022-01-24 01:04:57 [facility] Branch TREATMENT Encounters Start End Encounter Admission Attending Care Care Encounter Source Date/Time Date/Time Type Type Clinicians Facility Department ID 2022-10-10 2022-10-10 Emergency X JUAN ALBERTO [facility] ERT [id number] Univers 20:27:00 23:59:00 GABINO [facility] 2022-10-10 2022-10-10 Emergency Juan Alberto [facility] [id number] Univers 20:27:00 23:59:00 Gabino [id number] [id number] [facility] [id number] [address] 2022-05-30 2022-05-30 Emergency X MARGARITA [facility] ERT [id number] Univers 20:19:00 23:28:00 [facility] 2022-05-30 2022-05-30 Emergency Margarita [facility] [id number] Univers 20:19:00 23:28:00 [facility] [id number] it y of [facility] [id number] [facility] [id number] [address] ([facility]) 2022-01-23 2022-01-23 Emergency X COLLIN [facility] ERT [id number] Univers 20:29:00 22:56:00 ESVIN [facility] 2022-01-23 2022-01-23 Emergency Collin [facility] [id number] Univers 20:29:00 22:56:00 [facility] [employer] [id number] ity of [facility] [id number] [facility] [phone] [address] ([facility]) Results Test Description Test Time Test Comments Results Result Comments Source COMP. METABOLIC PANEL (81430) 2022-05-31 02:25:34 Test Item Value Reference Range Interpretation Comme nts NA (test code = 4758376959) 140 mmol/L 135-145 K (test code = 4968944742) 4.3 mmol/L 3.5-5 CL (test code = 7674676333) 107 mmol/L 98-108 CO2 TOTAL (test code = 25 mmol/L 23-31 2320660334) AGAP (test code = 7112699410) 2-16 BUN (test code = 9743013608) 16 mg/dL 7-23 GLUCOSE (test code = 7195411861) 84 mg/dL 70-110 CREATININE (test code = 0.90 mg/dL 0.6-1.25 8997807182) TOTAL BILI (test code = 0.6 mg/dL 0.1-1.1 2543722679) CALCIUM (test code = 1420450645) 9.5 mg/dL 8.6-10.6 T PROTEIN (test code = 6.8 g/dL 6.3-8.2 4150537278) ALBUMIN (test code = 3731467456) 4.4 g/dL 3.5-5 ALK PHOS (test code = 2139258802) 58 U/L 34-122 ALTv (test code = 1742-6) 36 U/L 5-50 AST(SGOT) (test code = 38 U/L 13-40 7341832614) eGFR (test code = 1679136542) mL/min/1.73m2 FRANSISCO (test code = FRANSISCO) Association [...] or urine or abnormalities in imaging tests). [facility] WITH [id number] 02:16:35 Test Item Value Reference Range Interpretation Comments WBC (test code = See_Comment [Automated 6990-2) message] The sy stem which generated this [...] RDW-SD (test code = 41.4 fL 38.5-51.6 31639-6) RDW-CV (test code = 12.3 % 12.1-15.4 788-0) PLT (test code = See_Comment [Automated 777-3) message] The sy stem which generated this result transmitted reference range : 150 - 328 10*3/ ?L. The reference r josé miguel was not used to interpret this result as normal/abnormal . MPV (test code = 10.3 fL 9.8-13 99296-7) NRBC/100 WBC (test See_Comment [Automat ed code = 1664857282) message] The system which generated this result transmitted reference range : 0.0 - 10.0 /100 WBCs. The refer ence range was not u sed to interpret th is result as normal/abnormal . NRBC x10^3 (test code See_Comment [Auto mated = 8287385056) message] The s ystem which generated this result transmitted reference range : 10*3/?L. The reference range was not used to interpret this result as normal/abnormal . GRAN MAT (NEUT) % 59.3 % (test code = 770-8) IMM GRAN % (test code 0.40 % = 8456741659) LYMPH % (test code = 26.5 % 736-9) MONO % (test code = 7.5 % 5905-5) EOS % (test code = 5.2 % 713-8) BASO % (test code = 1.1 % 706-2) GRAN MAT x10^3(ANC) 4.35 10*3/uL 1.99-6.95 (test code = 8222424463) IMM GRAN x10^3 (test 0.03 10*3/uL 0-0.06 code = 0647228571) LYMPH x10^3 (test code 1.94 10*3/uL 1.09-3.23 = 731-0) MONO x10^3 (test code 0.55 10*3/uL 0.36-1.02 = 742-7) EOS x10^3 (test code = 0.38 10*3/uL 0.06-0.53 711-2) BASO x10^3 (test code 0.08 10*3/uL 0.01-0.09 = 704-7) Lab Interpretation Abnormal (test code = 13394-6) [facility]"
--- NOTE | 2023-04-03 10:43 | RAD REPORT ---
EXAM DESCRIPTION: Petar Single View04/03/2023 10:36 am CLINICAL HISTORY: CHEST PAIN COMPARISON: No comparisons TECHNIQUE: Portable AP view of the chest. FINDINGS: The lungs are clear. No pneumothorax or effusion. The cardiomediastinal contours are unrem arkable. IMPRESSION: No acute cardiopulmonary process.
[2023-04-03 10:55] LABS: Absolute Lymphocytes (CBC) 1.4 K/uL (0.7-4.9); Hematocrit 43.2 % (39.6-49.0); Lymphocytes % 19.6 % (15.3-44.8); MCV 95.7 fL (80-100); MPV 8.3 fL (7.6-11.3); Platelets 183 thou/uL (152-406); RBC Red Blood Cell Count 4.51 M/uL (4.33-5.43)
[2023-04-03 11:13] LABS: Albumin 4.1 g/dL (3.4-5.0); Bilirubin Direct 0.2 mg/dL (0-0.2); Bilirubin Indirect, Calculated 0.7 mg/dL (0.2-0.8); Bilirubin Total 0.9 mg/dL (0.2-1.0); Magnesium 2.2 mg/dL (1.6-2.4); Potassium 3.8 mEq/L (3.5-5.1); Protein, Total 7.4 g/dL (6.4-8.2); Troponin High Sensitivity 4.3 pg/mL (<58.9)
--- NOTE | 2023-04-03 11:47 | RAD REPORT ---
EXAM DESCRIPTION: CT - Abdomen Pelvis W Contrast - 04/03/2023 11:36 am CLINICAL HISTORY: ABD PAIN COMPARISON: No comparisons TECHNIQUE: Thin cut axial CT imaging of the abdomen and pelvis was performed following intravenous a dministration of 100 mL Isovue 300. Multiplanar reformats were generated and reviewed. All CT scans are performed using dose optimization technique as appropriate and may include automated exposure control or mA/KV adjustment according to patient size. FINDINGS: No suspicious findings in the lung bases. The liver shows diffuse hepatic parenchymal hypoattenuation suggesting steatosis. Status post cholecy stectomy. Spleen, adrenal glands, and pancreas show no suspicious findings. No intra or extrahepatic biliary ductal dilation. Symmetric renal function is seen with no hydronephrosis or suspicious renal mass. No dilated bowel loops or bowel wall thickening. Sequelae of prior gastric bypass surgery. No free ai r, free fluid or inflammatory stranding. No hernia, mass or bulky lymphadenopathy. The urinary bladde r is without significant finding. No suspicious bony findings. IMPRESSION: No acute intra-abdominal process.
--- NOTE | 2023-04-03 12:15 | EDPHYS ---
Physician Documentation [facility] Name: Daniel Coronel Age: 27 yrs Sex: Male : 1995 Arrival Date: 04/03/2023 Time: 09:54 Bed 5 Private MD: ED Physician Jason Zheng HPI: 04/03 10:23 This 27 yrs old Male presents to ER via Ambulatory with complaints of Shoulder Pain, sb4 DIAPHRAGM PAIN. 10:23 Patient states that last night he started experiencing some left-sided shoulder pain. sb4 He was not concerned about it because he has had prior rotator cuff surgery and attributed to that. However, this morning he started experiencing epigastric pain that he describes as a "band squeezing him" and states radiates to his back. He does endorse some nausea but states that is not abnormal for him because he has IBS. He denies any localized chest pain, shortness of breath, fever, chills, cough. Historical: - Allergies: 10:08 Amoxicillin; mb9 10:08 TETRACYCLINES; mb9 - Home Meds: 10:08 choestyramine [Active]; mb9 - PMHx: 10:08 Irritable bowel syndrome; mb9 - PSHx: 10:08 Cholecystectomy; gastric sleeve; mb9 - Immunization history:: Adult Immunizations up to date. - Social history:: Smoking status: Patient denies any tobacco usage or history of. ROS: 10:26 Constitutional: Negative for fever, chills, and weight loss, Eyes: Negative for injury, sb4 pain, redness, and discharge, ENT: Negative for injury, pain, and discharge, Cardiovascular: Negative for chest pain, palpitations, and edema, Respiratory: Negative for shortness of breath, cough, wheezing, and pleuritic chest pain, Back: Negative for injury and pain, Skin: Negative for injury, rash, and discoloration, Neuro: Negative for headache, weakness, numbness, tingling, and seizure. 10:26 Abdomen/GI: Positive for abdominal pain, nausea, Negative for vomiting, diarrhea, constipation. 10:26 MS/extremity: Positive for pain, of the anterior aspect of right shoulder. 10:26 All other systems are negative. sb4 Exam: 10:26 Constitutional: This is a well developed, well nourished patient who is awake, alert, sb4 and in no acute distress. Head/Face: Normocephalic, atraumatic. Eyes: Extra-ocular motions intact. Periorbital areas with no swelling, redness, or edema. ENT: Mucous membranes moist. Cardiovascular: Regular rate and rhythm with a normal S1 and S2. Respiratory: Lungs have equal breath sounds bilaterally, clear to auscultation and percussion. No rales, rhonchi or wheezes noted. No increased work of breathing, no retractions or nasal flaring. Abdomen/GI: Soft, non-tender, no distension. Back: No spinal tenderness. No costovertebral tenderness. Full range of motion. Skin: Warm, dry with normal turgor. Normal color with no rashes, no lesions, and no evidence of cellulitis. MS/ Extremity: Pulses equal, no cyanosis. Neurovascular intact. Full, normal range of motion. Neuro: Awake and alert, GCS 15, oriented to person, place, time, and situation. Cranial nerves II-XII grossly intact. Motor strength 5/5 in all extremities. Sensory grossly intact. Cerebellar exam normal. Normal gait. Vital Signs: 10:07 BP 151 / 90; Pulse 80; Resp 16; Temp 98; Pulse Ox 97% ; Weight 127.01 kg; Height 5 ft. mb9 10 in. ; 10:37 BP 124 / 79; Pulse 71; Pulse Ox 97% on R/A; ap3 12:36 BP 115 / 68; Pulse 67; Resp 18; Pulse Ox 96% on R/A; nj1 10:07 Body Mass Index 40.18 (127.01 kg, 177.8 cm) mb9 MDM: 09:58 Patient medically screened. sb4 10:26 Differential diagnosis: tendonitis, arthritis, pancreatitis, gastritis, angina, sb4 nonspecific abd pain. 12:14 Data reviewed: vital signs, nurses notes, lab test result(s), radiologic studies, and sb4 as a result, I will discharge patient. Historians other than the Patient: Parent: mother. Counseling: I had a detailed discussion with the patient and/or guardian regarding: the historical points, exam findings, and any diagnostic results supporting the discharge/admit diagnosis, lab results, radiology results, to return to the emergency department if symptoms worsen or persist or if there are any questions or concerns that arise at home. 04/03 10:14 Order name: Basic Metabolic Panel; Complete Time: 11:22 sb4 04/03 10:14 Order name: CBC with Diff; Complete Time: 10:58 sb4 04/03 10:14 Order name: D-Dimer; Complete Time: 11:00 sb4 04/03 10:14 Order name: LFT's; Complete Time: 11:22 sb4 04/03 10:14 Order name: Magnesium; Complete Time: 11:22 sb4 04/03 10:14 Order name: NT PRO-BNP; Complete Time: 11:22 sb4 04/03 10:14 Order name: Troponin HS; Complete Time: 11:22 sb4 04/03 10:14 Order name: Lipase; Complete Time: 11:22 sb4 04/03 10:14 Order name: XRAY Chest (1 view); Complete Time: 10:43 sb4 04/03 11:22 Order name: CT Abd/Pelvis - IV Contrast Only; Complete Time: 11:51 sb4 04/03 10:14 Order name: EKG; Complete Time: 10:15 sb4 04/03 10:14 Order name: Cardiac monitoring; Complete Time: 10:35 sb4 04/03 10:14 Order name: EKG - Nurse/Tech; Complete Time: 10:48 sb4 04/03 10:14 Order name: IV Saline Lock; Complete Time: 10:48 sb4 04/03 10:14 Order name: Labs collected and sent; Complete Time: 10:48 sb4 04/03 10:14 Order name: O2 Per Protocol; Complete Time: 10:35 sb4 04/03 10:14 Order name: O2 Sat Monitoring; Complete Time: 10:35 sb4 EC:31 Rate is 70 beats/min. Rhythm is regular, Normal Sinus Rhythm. ND interval is normal at sb4 132 msec. QRS interval is normal at 100 msec. QT interval is normal at 396 msec. No Q waves. T waves are Normal. No ST changes noted. Clinical impression: Normal ECG. Interpreted by me. Reviewed by me. Administered Medications: 11:48 Drug: Ondansetron IVP 4 mg Route: IVP; Site: right antecubital; ap3 12:35 Follow up: Response: No adverse reaction nj1 Disposition Summary: 04/03/23 12:14 Discharge Ordered Location: Home sb4 Problem: new sb4 Symptoms: have improved sb4 Condition: Stable sb4 Diagnosis - Fatty (change of) liver, not elsewhere classified sb4 - Upper abdominal pain, unspecified sb4 Followup: sb4 - With: - When: - Reason: Further diagnostic work-up, Recheck today's complaints, Re-evaluation by your physician Discharge Instructions: - Discharge Summary Sheet sb4 - Abdominal Pain, Adult, [id number] sb4 - Fatty Liver Disease sb4 - Nonalcoholic Fatty Liver Disease Diet, Adult sb4 Forms: - Medication Reconciliation Form sb4 - Thank You Letter sb4 - Antibiotic Education sb4 - Prescription Opioid Use sb4 - Patient Portal Instructions sb4 - Leadership Thank You Letter sb4 - Work release form nj1 Signatures: Dispatcher [employer] Dori Bauman RN RN ap3 Danielle Otto, PAMahamedC PAKarri sb4 Marielena Contreras RN RN mb9 Brenda Wahl RN nj1 Corrections: (The following items were deleted from the chart) 10:27 10:23 Patient states that last night he started experiencing some left-sided shoulder sb4 pain. He was not concerned about it because he has had prior rotator cuff surgery and attributed to that.. sb4
--- NOTE | 2023-04-03 12:15 | ER ---
Nurse's Notes [facility] Name: Daniel Coronel Age: 27 yrs Sex: Male : 1995 Arrival Date: 04/03/2023 Time: 09:54 Bed 5 Private MD: Diagnosis: Fatty (change of) liver, not elsewhere classified;Upper abdominal pain, unspecified Presentation: 04/03 10:07 Chief complaint: Patient states: DIAPHRAGM PAIN SINCE LAST PM. Coronavirus screen: At mb9 this time, the client does not indicate any symptoms associated with coronavirus-19. Ebola Screen: No symptoms or risks identified at this time. Initial Sepsis Screen: Does the patient meet any 2 criteria? No. Patient's initial sepsis screen is negative. Does the patient have a suspected source of infection? No. Patient's initial sepsis screen is negative. Risk Assessment: Do you want to hurt yourself or someone else? Patient reports no desire to harm self or others. Onset of symptoms is unknown. 10:07 Method Of Arrival: Ambulatory mb9 10:07 Acuity: ALY 3 mb9 Historical: - Allergies: 10:08 Amoxicillin; mb9 10:08 TETRACYCLINES; mb9 - Home Meds: 10:08 choestyramine [Active]; mb9 - PMHx: 10:08 Irritable bowel syndrome; mb9 - PSHx: 10:08 Cholecystectomy; gastric sleeve; mb9 - Immunization history:: Adult Immunizations up to date. - Social history:: Smoking status: Patient denies any tobacco usage or history of. Screenin:18 [facility] ED Fall Risk Assessment (Adult) Score/Fall Risk Level 0 - 2 = Low Risk nj1 Oriented to surroundings, Maintained a safe environment, Hourly rounding (assess needs \T\ fall precautionary measures) done. Abuse screen: Denies threats or abuse. Denies injuries from another. Nutritional screening: No deficits noted. Tuberculosis screening: Assessment: 10:17 General: Appears in no apparent distress. comfortable, Behavior is calm, cooperative, nj1 appropriate for age. Pain: Complains of pain in chest Pain does not radiate. Pain currently is 9 out of 10 on a pain scale. Pain began 1 day ago. Aggravated by Deep breathing. Neuro: Level of Consciousness is awake, alert, obeys commands, Oriented to person, place, time, situation. Cardiovascular: Reports chest pain, Patient's skin is warm and dry. Respiratory: Airway is patent Respiratory effort is even, unlabored. 11:00 Reassessment: Patient appears in no apparent distress at this time. Patient and/or nj1 family updated on plan of care and expected duration. Pain level reassessed. Patient is alert, oriented x 3, equal unlabored respirations, skin warm/dry/pink. 12:36 Reassessment: Patient appears in no apparent distress at this time. Patient and/or nj1 family updated on plan of care and expected duration. Pain level reassessed. Patient is alert, oriented x 3, equal unlabored respirations, skin warm/dry/pink. Patient states symptoms have improved. Vital Signs: 10:07 BP 151 / 90; Pulse 80; Resp 16; Temp 98; Pulse Ox 97% ; Weight 127.01 kg; Height 5 ft. mb9 10 in. ; 10:37 BP 124 / 79; Pulse 71; Pulse Ox 97% on R/A; ap3 12:36 BP 115 / 68; Pulse 67; Resp 18; Pulse Ox 96% on R/A; nj1 10:07 Body Mass Index 40.18 (127.01 kg, 177.8 cm) mb9 ED Course: 09:57 Patient arrived in ED. ts1 09:58 Danielle Otto PA-C is PHCP. sb4 09:58 Jason Zheng MD is Attending Physician. sb4 10:07 Triage completed. mb9 10:08 Arm band placed on. mb9 10:12 Brenda Wahl, MARIA VICTORIA is Primary Nurse. nj1 10:19 Patient has correct armband on for positive identification. Bed in low position. Call nj1 light in reach. Adult w/ patient. Provided Education on: Fall precautions, call light. Client placed on continuous cardiac and pulse oximetry monitoring. NIBP monitoring applied. 10:19 Patient maintains SpO2 saturation greater than 95% on room air. nj1 10:26 Missed attempt(s): 20 gauge in right antecubital area. ap3 10:37 XRAY Chest (1 view) In Process Unspecified. EDMS 10:40 Inserted saline lock: 20 gauge in right antecubital area, using aseptic technique. nj1 Blood collected. 11:38 CT Abd/Pelvis - IV Contrast Only In Process Unspecified. EDMS 12:14 Joseph Palomo MD is Referral Physician. sb4 12:37 No provider procedures requiring assistance completed. IV discontinued, intact, nj1 bleeding controlled. Administered Medications: 11:48 Drug: Ondansetron IVP 4 mg Route: IVP; Site: right antecubital; ap3 12:35 Follow up: Response: No adverse reaction nj1 Medication: 10:20 VIS not applicable for this client. nj1 Outcome: 12:14 Discharge ordered by . sb4 12:37 Discharged to home ambulatory, with family. nj1 12:37 Condition: stable 12:37 Discharge instructions given to patient, Instructed on discharge instructions, follow up and referral plans. Demonstrated understanding of instructions, follow-up care. 12:37 Patient left the ED. nj1 Signatures: Dispatcher [employer] EDCO Dori Lorenz RN RN ap3 Danielle Otto, PA-C PA-C sb4 Marielena Contreras RN RN mb9 Brenda Wahl RN RN nj1 Camila Caruso, PAS PAS ts1
[2023-04-03 13:03] VITALS: TEMP 98
[2023-04-03 13:14] VITALS: BP 115/68; O2SAT 96
--- NOTE | 2023-04-04 17:31 | EKG ---
Test Date: 2023-04-03 Test Time: 10:28:35 [employer] Tester: SURJIT MEASUREMENT RESULTS: Intervals: Rate: 70 NV: 132 QRSD: 100 QT: 396 QTc: 427 Baxter: P: 22 NV: 132 QRS: -2 T: 6 INTERPRETIVE STATEMENTS: Normal sinus rhythm Normal ECG No previous ECG available for comparison Electronically Signed On 04-04-23 17:28:26 CDT by Cuba Ramos
== END 2023-04-03 12:37 | disposition home or self-care (01) ==
LOC: ER 09:54
DX: K76.0 Fatty (change of) liver, not elsewhere classified (principal); Z88.1 Allergy status to other antibiotic agents
CPT/HCPCS: 85025; 80048; 36415; 83735; 85379; 80076; 84484; 83690; 83880; 74177; 71045; Q9967; 93005

== ENCOUNTER 2023-06-15 19:25 | Emergency (ER) | payer OTHER ==
--- OUTSIDE RECORDS SUMMARY | 2023-06-15 19:29 | XMS REPORT | Continuity of Care Document ---
:1995 Author Organization [facility] t Address [address] [place] [id number] Care Team Providers Name Role Phone PCP, [...] Date Expiration Date S alexand[place] MEDICAID GENERIC [id number] 2021 00:00:00 Problems Condition Condition Condition Status Onset Resolution Last Treating Co mments Source Name Details Category Date Date Treatment Clinician Date Asthma Asthma Disease Active Univers 5-08 ity of 00:00: [place] [facility] Obesity Obesity Disease Active Univers 2-17 ity of 00:00: [place] 00 [facility] Acne Acne Disease Active Univers 2-17 ity of 00:00: [place] 00 [facility] Ingrown Ingrown Disease Active Univers toenail toenail 2-17 ity of 00:00: [place] 00 Medical [facility] Allergies, Adverse Reactions, Alerts [...] 2-16 ity of adverse 00:00: [place] reaction Medical s Branch Tetracyc Propensi Active Hives Univer s line ty to 2-16 ity of adverse 00:00: [place] [facility] s [facility] MINOCYCL DRUG Active Hives Univers INE INGREDI 2-16 ity of 00:00: [place] [facility] TETRACYC DRUG Active Hives Univers LINE INGREDI 2-16 ity of 00:00: [place] [facility] Social History Social Habit Start Date Stop Date Quantity Comments Source Exposure to 2022-09-30 2022-10-10 Not sure [facility] SARS-CoV-2 00:00:00 20:20:00 [facility] (event) [place] Alcohol intake 2022-02-27 2022-02-27 Pending sale to [facility] 00:00:00 00:00:00 non-drinker of [facility] alcohol Branch (finding) Sex Assigned At [birth year] Universit y of 00:00:00 00:00:00 [facility] Smoking Status Start Date Stop Date Source Never smoked tobacco [facility] Medications Ordered Filled Start Stop Current Ordering Indication Dosage Frequency Signature Comments Components Source Medication Medication Date Date Medication? Clinician (SIG) Name Name benzonatate Yes [id number] 200mg Take 1 Univers 200 mg 2-22 capsule by ity of capsule 00:00: mouth 3 00 (three) Medical times Branch daily as needed for Cough. ibuprofen Yes [id number] 800mg Take 1 U nivers 800 mg 2-22 tablet by ity of tablet 00:00: mouth [place] 00 every 8 Medical (eight) Branch hours as needed for Pain (scale 4-6) or Temp > 38.5 C. meclizine 2021-08 No 25mg 25 mg, Unive rs (TRAVEL-EAS 0-13 10-13 Oral, ity of E 03:00: 03:09 ONCE, 1 [place] (MECLIZINE) 00 :00 dose, [facility] ) tablet 25 Wed Branch mg 05/30/22 at 2200, AWILDA ketorolac 2021-08 No 30mg 30 mg, Unive rs (TORADOL) 0-13 10- Slow IV ity of injection 03:00: 02:09 Push, [place] 30 mg 00 :00 ONCE, 1 Medical dose, On Branch 05/30/22 at 2200, Routine cefTRIAXone 2021-08 No 500mg 500 mg, U nivers (ROCEPHIN) 0-13 10- Intramuscu it y of injection 02:45: 02:14 lar, ONCE, [place] 500 mg 00 :00 1 dose, On Medical Wed Branch 05/30/22 at 2145, AWILDA
Re ason for Anti-Infec tive: Empiric Therapy for Suspected Infection< br>Empiric Therapy Site: Urine
D uration of therapy: 72 hours azithromyci 2021-08 No 1000mg 1,000 mg, Univers n 0-31 05- Oral, ity of (ZITHROMAX) 02:00: 02:11 ONCE, 1 [place] tablet 00 :00 dose, On Medical 1,000 mg [facility] Branch 05/30/22 at 2100, AWILDA
Re ason for Anti-Infec tive: Empiric Therapy for Suspected Infection< br>Empiric Therapy Site: Urine
D uration of therapy: 72 hours meclizine 2021-08 Yes [id number] 25mg Take 1 U nivers 25 mg 0-12 tablet by ity of tablet 00:00: mouth [place] 00 every 6 Medical (six) Branch hours. meclizine 2021-08 Yes [id number] 25mg Take 1 U nivers 25 mg 0-12 tablet by ity of tablet 00:00: mouth [place] 00 every 6 Medical (six) Branch hours. azithromyci No 500mg 500 mg, U nivers n 6-08 06-08 Oral, ity of (ZITHROMAX) 03:30: 03:39 ONCE, 1 [place] tablet 500 00 :00 dose, On Medic al mg e 01/23/22 Branch at 2230, AWILDA
Re ason for Anti-Infec tive: Documented Infection< br>Documen amaya Infection Site: Urine
D uration of Therapy: 7 days cefTRIAXone Yes 500mg 500 mg, Un dewayne (ROCEPHIN) 6-08 Intramuscu ity of injection 03:15: lar, Q24H, [place] 500 mg 00 First dose Medical on [facility] Branch 01/23/22 at 2215, Until Discontinu ed, AWILDA
Re ason for Anti-Infec tive: Empiric Therapy for Suspected Infection< br>Empiric Therapy Site: Urine<b r>Duration of therapy: 72 hours metroNIDAZO 2021- No [id number] 500mg Take 1 Univers LE 500 mg 01-23 06-15 tablet by ity of tablet 00:00: 04:59 mouth 2 [place] 00 :00 (two) Medical times Branch daily for 7 days. ibuprofen 2012-08 Yes [id number] 800mg Take 1 Tab Univers (MOTRIN) 0-17 by mouth 3 ity o f 800 mg 00:00: (three) [place] tablet 00 times Medical daily with Branch meals. ibuprofen 2012-08 Yes [id number] 800mg Take 1 Tab Univers (MOTRIN) 0-17 by mouth 3 ity o f 800 mg 00:00: (three) [place] tablet 00 times Medical daily with Branch meals. ibuprofen 2012-08 Yes [id number] 800mg Take 1 Tab Univers (MOTRIN) 0-17 by mouth 3 ity o f 800 mg 00:00: (three) [place] tablet 00 times Medical daily with Branch meals. fluticasone Yes [id number] 2{spray Use 2 Univers (FLONASE) 9-18 } Sprays in ity o f 50 00:00: each [place] mcg/actuati 00 nostril Medic al on nasal daily. Use Branc h spray alternate hand to administer albuterol Yes [id number] 2{puff} Inhale 2 Univers (VENTOLIN) 9-18 Puffs ity of 90 00:00: every 4 [place] mcg/actuati 00 (four) Medica l on inhaler hours as Branc h needed for Wheezing or Shortness of Breath. codeine-gua Yes [id number] 5mL Take 5 mL Univers ifenesin 9-18 by mouth ity of (ROBITUSSIN 00:00: every 6 [place] AC) 10-100 00 (six) Medical mg/5 mL hours as Branch solution needed for Cough. fluticasone Yes [id number] 2{spray Use 2 Univers (FLONASE) 9-18 } Sprays in ity o f 50 00:00: each [place] mcg/actuati 00 nostril Medic al on nasal daily. Use Branc h spray alternate hand to administer albuterol Yes [id number] 2{puff} Inhale 2 Univers (VENTOLIN) 9-18 Puffs ity of 90 00:00: every 4 [place] mcg/actuati 00 (four) Medica l on inhaler hours as Branc h needed for Wheezing or Shortness of Breath. codeine-gua Yes [id number] 5mL Take 5 mL Univers ifenesin 9-18 by mouth ity of (ROBITUSSIN 00:00: every 6 [place] AC) 10-100 00 (six) Medical mg/5 mL hours as Branch solution needed for Cough. fluticasone Yes [id number] 2{spray Use 2 Univers (FLONASE) 9-18 } Sprays in ity o f 50 00:00: each [place] mcg/actuati 00 nostril Medic al on nasal daily. Use Branc h spray alternate hand to administer albuterol Yes [id number] 2{puff} Inhale 2 Univers (VENTOLIN) 9-18 Puffs ity of 90 00:00: every 4 [place] mcg/actuati 00 (four) Medica l on inhaler hours as Branc h needed for Wheezing or Shortness of Breath. codeine-gua Yes [id number] 5mL Take 5 mL Univers ifenesin 9-18 by mouth ity of (ROBITUSSIN 00:00: every 6 [place] AC) 10-100 00 (six) Medical mg/5 mL hours as Branch solution needed for Cough. azithromyci Yes [id number] 500mg Take 1 Tab Univers n 5-08 by mouth ity of (ZITHROMAX) 00:00: daily. [place] 500 mg 00 Medical tablet Branch codeine-gua Yes [id number] 5mL Take 5-10 Univers ifenesin 5-08 mL by ity of (CHERATUSSI 00:00: mouth [place] N AC) 00 every 6 Medical 10-100 mg/5 (six) Branch mL solution hours as needed for Cough. azithromyci Yes [id number] 500mg Take 1 Tab Univers n 5-08 by mouth ity of (ZITHROMAX) 00:00: daily. [place] 500 mg 00 Medical tablet Branch codeine-gua Yes [id number] 5mL Take 5-10 Univers ifenesin 5-08 mL by ity of (CHERATUSSI 00:00: mouth [place] N AC) 00 every 6 Medical 10-100 mg/5 (six) Branch mL solution hours as needed for Cough. azithromyci Yes [id number] 500mg Take 1 Tab Univers n 5-08 by mouth ity of (ZITHROMAX) 00:00: daily. [place] 500 mg 00 Medical tablet Branch codeine-gua Yes [id number] 5mL Take 5-10 Univers ifenesin 5-08 mL by ity of (CHERATUSSI 00:00: mouth [place] N ) 00 every 6 Medical 10-100 mg/5 (six) [...] needed for Pain (scale 4-6). albuterol Yes [id number] 2.5mg Inhale 0.5 Univers 2.5 mg/0.5 2-14 mL every 4 ity of mL 00:00: (four) [place] nebulizer 00 hours as Medica l solution needed for Branc h Wheezing or Shortness of Breath. albuterol Yes [id number] 2.5mg Inhale 0.5 Univers 2.5 mg/0.5 2-14 mL every 4 ity of mL 00:00: (four) [place] nebulizer 00 hours as Medica l solution needed for Branc h Wheezing or Shortness of Breath. albuterol Yes [id number] 2.5mg Inhale 0.5 Univers 2.5 mg/0.5 2-14 mL every 4 ity of mL 00:00: (four) [place] nebulizer 00 hours as Medica l solution needed for Branc h Wheezing or Shortness of Breath. fexofenadin Yes [id number] 180mg Take 1 Tab Univers e (DOMONIQUE) 1-04 by mouth ity of 180 mg 00:00: daily. [place] tablet [facility] fexofenadin Yes [id number] 180mg Take 1 Tab Univers e (DOMONIQUE) 1-04 by mouth ity of 180 mg 00:00: daily. [place] tablet [facility] fexofenadin Yes [id number] 180mg Take 1 Tab Univers e (DOMONIQUE) 1-04 by mouth ity of 180 mg 00:00: daily. [place] tablet [address] [place] [address] Vital Signs Vital Name Observation Time Observation Value Comments Source Systolic blood 2022-10-11 02:21:00 138 mm[Hg] Univer sity [facility] Diastolic blood 2022-10-11 02:21:00 84 mm[Hg] Unive [facility] Heart rate 2022-10-11 02:21:00 81 /min [facility] Body temperature 2022-10-11 02:21:00 37 Dianna [facility] Respiratory rate 2022-10-11 02:21:00 20 /min [facility] Body height 2022-10-11 02:21:00 177.8 cm [facility] Body weight 2022-10-11 02:21:00 127.007 kg [facility] BMI 2022-10-11 02:21:00 40.18 kg/m2 [facility] Oxygen saturation in 2022-10-11 02:21:00 98 /min [facility] Arterial blood by [facility] Pulse oximetry Branch Systolic blood 2022-05-31 04:00:00 120 [facility]Hg] [facility] 2022-05-31 04:00:00 68 mm[Hg] Unive rsity of pressure [facility] Heart rate 2022-05-31 04:00:00 72 /min Universi ty of [facility] Oxygen saturation in 2022-05-31 04:00:00 100 /min University of Arterial blood by [facility] Pulse oximetry Branch Respiratory rate 2022-05-31 03:45:00 18 /min Univ ersity of [facility] Body temperature 2022-05-31 01:20:00 36.72 Dianna [facility] ersity [facility] Body height 2022-05-31 01:18:00 177.8 cm Universi ty of [facility] Body weight 2022-05-31 01:18:00 127.007 kg Universi ty of [facility] BMI 2022-05-31 01:18:00 40.18 kg/m2 Universi ty of [facility] BMI 2022-01-24 01:27:00 39.05 kg/m2 Universi ty of [facility] Oxygen saturation in 2022-01-24 01:27:00 96 /min University of Arterial blood by [facility] Pulse oximetry Branch Systolic blood 2022-01-24 01:27:00 163 mm[Hg] Univer sity of pressure [facility] Diastolic blood 2022-01-24 01:27:00 80 mm[Hg] Unive rsity of pressure [facility] Heart rate 2022-01-24 01:27:00 68 /min Universi ty of [facility] Body temperature 2022-01-24 01:27:00 36.67 Dianna [facility] 2022-01-24 01:27:00 20 /min [facility] Body height 2022-01-24 01:27:00 180.3 cm Universi ty of [facility] Body weight 2022-01-24 01:27:00 127.007 kg [facility] Procedures Procedure Date / Time Performed Performing Clinician Sourc e RAPID INFLUENZA A/B 2022-10-11 02:26:00 Gabino Womack [facility] COVID-19 (ID NOW RAPID 2022-10-11 02:26:00 Gabino Womack [facility] TESTING) Medical Branch NOTICE OF PRIVACY 2022-10-11 02:10:30 Doctor Unassigned, No [facility] PRACTICES Name Medical Branch CONSENT/REFUSAL FOR 2022-10-11 02:10:04 Doctor Unassigned, No [facility] [place] DIAGNOSIS AND Name Medical Branch TREATMENT COMP. METABOLIC PANEL 2022-05-31 02:09:00 Lizzy [facility] ([id number]) Medical Branch CBC WITH DIFF 2022-05-31 02:09:00 [place] [facility] URINALYSIS 2022-05-31 02:09:00 [facility] CONSENT/REFUSAL FOR 2022-05-31 01:05:43 Doctor Unassigned, No [facility] [place] DIAGNOSIS AND Name Medical Branch TREATMENT URINALYSIS 2022-01-24 03:27:00 Esvin Tinajero [facility] ASSIGNMENT OF BENEFITS 2022-01-24 01:05:13 Doctor Unassigned, No [facility] Name Medical Branch CONSENT/REFUSAL FOR 2022-01-24 01:04:57 Doctor Unassigned, No [facility] [place] DIAGNOSIS AND Name Medical Branch TREATMENT Encounters Start End Encounter Admission Attending Care Care Encounter Source Date/Time Date/Time Type Type Clinicians Facility Department ID 2022-10-10 2022-10-10 Emergency X JUAN ALBERTO [facility] ERT [id number] Univers 20:27:00 23:59:00 DEISHAAN [facility] 2022-10-10 2022-10-10 Emergency Juan Alberto [facility] [id number] Univers 20:27:00 23:59:00 Gabino Gannon [place] [id number] [facility] [id number] [facility] [id number] [place] [id number] Branch 2022-05-30 2022-05-30 Emergency [facility] [id number] Univers 20:19:00 23:28:00 [facility] 2022-05-30 2022-05-30 Emergency [facility] [id number] Univers 20:19:00 23:28:00 [facility] [id number] it y of [place] [id number] [facility] [id number] [address] ([facility]) 2022-01-23 2022-01-23 Emergency X [facility] ERT [id number] Univers 20:29:00 22:56:00 FOLUSHO ity [facility] 2022-01-23 2022-01-23 Emergency [facility] [id number] Univers 20:29:00 22:56:00 [facility] [id number] ity of [place] [id number] [facility] [id number] [address] ([facility]) Results Test Description Test Time Test Comments Results Result Comments Source COMP. METABOLIC PANEL (13019) 2022-05-31 02:25:34 Test Item Value Reference Range Interpretation Comme nts NA (test code = 3796042112) 140 mmol/L 135-145 K (test code = 9411412916) 4.3 mmol/L 3.5-5 CL (test code = 8548286751) 107 mmol/L 98-108 CO2 TOTAL (test code = 25 mmol/L 23-31 2697305207) AGAP (test code = 7622006945) 2-16 BUN (test code = 5254093145) 16 mg/dL 7-23 GLUCOSE (test code = 2250204315) 84 mg/dL 70-110 CREATININE (test code = 0.90 mg/dL 0.6-1.25 3887298084) TOTAL BILI (test code = 0.6 mg/dL 0.1-1.1 8655001717) CALCIUM (test code = 3535956562) 9.5 mg/dL 8.6-10.6 T PROTEIN (test code = 6.8 g/dL 6.3-8.2 0852846972) ALBUMIN (test code = 1747691377) 4.4 g/dL 3.5-5 ALK PHOS (test code = 9948913095) 58 U/L 34-122 ALTv (test code = 1742-6) 36 U/L 5-50 AST(SGOT) (test code = 38 U/L 13-40 3204715296) eGFR (test code = 1076762878) mL/min/1.73m2 FRANSISCO (test code = FRANSISCO) Association [...] or urine or abnormalities in imaging tests). [facility] WITH [id number] 02:16:35 Test Item Value Reference Range Interpretation Comments WBC (test code = See_Comment [Automated 5003-2) message] The sy stem which generated this result transmitted reference range : 4.20 - 10.70 10*3/?L. The reference range was not used to interpret this result as normal/abnormal . RBC (test code = See_Comment [Automated 191-9) message] The sy stem which generated this [...] RDW-SD (test code = 41.4 fL 38.5-51.6 04563-9) RDW-CV (test code = 12.3 % 12.1-15.4 788-0) PLT (test code = See_Comment [Automated 777-3) message] The sy stem which generated this result transmitted reference range : 150 - 328 10*3/ ?L. The reference r josé miguel was not used to interpret this result as normal/abnormal . MPV (test code = 10.3 fL 9.8-13 59433-2) NRBC/100 WBC (test See_Comment [Automat ed code = 7366819790) message] The system which generated this result transmitted reference range : 0.0 - 10.0 /100 WBCs. The refer ence range was not u sed to interpret th is result as normal/abnormal . NRBC x10^3 (test code See_Comment [Auto mated = 3741755680) message] The s ystem which generated this result transmitted reference range : 10*3/?L. The reference range was not used to interpret this result as normal/abnormal . GRAN MAT (NEUT) % 59.3 % (test code = 770-8) IMM GRAN % (test code 0.40 % = 1642014339) LYMPH % (test code = 26.5 % 736-9) MONO % (test code = 7.5 % 5905-5) EOS % (test code = 5.2 % 713-8) BASO % (test code = 1.1 % 706-2) GRAN MAT x10^3(ANC) 4.35 10*3/uL 1.99-6.95 (test code = 6947475142) IMM GRAN x10^3 (test 0.03 10*3/uL 0-0.06 code = 7610893235) LYMPH x10^3 (test code 1.94 10*3/uL 1.09-3.23 = 731-0) MONO x10^3 (test code 0.55 10*3/uL 0.36-1.02 = 742-7) EOS x10^3 (test code = 0.38 10*3/uL 0.06-0.53 711-2) BASO x10^3 (test code 0.08 10*3/uL 0.01-0.09 = 704-7) Lab Interpretation Abnormal (test code = 24464-9) [facility]"
[2023-06-15 20:43] LABS: Hematocrit 40.5 % (39.6-49.0); MCV 95.1 fL (80-100); MPV 8.2 fL (7.6-11.3); Platelets 184 thou/uL (152-406); RBC Red Blood Cell Count 4.26 M/uL (4.33-5.43)
[2023-06-15 21:09] LABS: Albumin 3.7 g/dL (3.4-5.0); Bilirubin Total 0.3 mg/dL (0.2-1.0); Potassium 3.8 mEq/L (3.5-5.1)
[2023-06-15] MEDS ORDERED: MORPHINE 4 MG/ML SYR ONE (21:29)
[2023-06-15] MEDS ORDERED: ONDANSETRON 4 MG/2 ML VIAL ONE (21:29)
--- NOTE | 2023-06-15 22:00 | RAD REPORT ---
EXAM DESCRIPTION: CTAbdomen Pelvis W Contrast - 06/15/2023 9:49 pm CLINICAL HISTORY: ABD PAIN COMPARISON: Abdomen Pelvis W Contrast dated 04/03/2023 TECHNIQUE: CT of the abdomen and pelvis was performed. All CT scans are performed using dose optimization technique as appropriate and may include automated exposure control or mA/KV adjustment according to patient size. FINDINGS: Lower chest: No acute abnormality. Mild circumferential thickened distal esophagus which c ould reflect mild esophagitis. Liver: No acute abnormality or suspicious lesions. Biliary: No biliary ductal dilatation. Cholecystectomy Stomach: Partial gastrectomy. Duodenum: No significant focal abnormality. Pancreas: No significant abnormality. Spleen: Mild splenomegaly. Adrenal: No suspicious lesions. Kidney/ureter: No hydronephrosis. No renal calculi. Retroperitoneum: No retroperitoneal adenopathy. Vascular: No aneurysm. Bowel: No significant focal abnormality. Normal appendix . Peritoneum: No ascites or free air. Bladder: Grossly unremarkable. Reproductive: No adnexal masses. Bones: No acute fracture. Other: n/a IMPRESSION: No acute intra-abdominal or pelvic finding.
--- NOTE | 2023-06-15 22:24 | ER ---
Nurse's Notes [facility] Name: Daniel Coronel Age: 27 yrs Sex: Male : 1995 Arrival Date: 06/15/2023 Time: 19:25 Bed 9 Private MD: Diagnosis: Abdominal wall pain Presentation: 06/15 19:57 Chief complaint: Patient states: RLQ pain X 4 days, he can feel a lump in his abdomen iw when he presses down. Coronavirus screen: At this time, the client does not indicate any symptoms associated with coronavirus-19. Ebola Screen: Patient negative for fever greater than or equal to 101.5 degrees Fahrenheit, and additional compatible Ebola Virus Disease symptoms Patient denies exposure to infectious person. Patient denies travel to an Ebola-affected area in the 21 days before illness onset. No symptoms or risks identified at this time. Initial Sepsis Screen: Does the patient meet any 2 criteria? No. Patient's initial sepsis screen is negative. Does the patient have a suspected source of infection? No. Patient's initial sepsis screen is negative. Risk Assessment: Do you want to hurt yourself or someone else? Patient reports no desire to harm self or others. Onset of symptoms was June 11, 2023. 19:57 Method Of Arrival: Ambulatory iw 19:57 Acuity: ALY 3 iw Historical: - Allergies: 19:58 Amoxicillin; iw 19:58 TETRACYCLINES; iw - PMHx: 19:58 Irritable bowel syndrome; iw - PSHx: 19:58 Cholecystectomy; gastric sleeve; iw - Immunization history:: Adult Immunizations unknown. - Social history:: Smoking status: unknown. Screenin:[address] [facility] ED Fall Risk Assessment (Adult) History of falling in the last 3 months, pf1 including since admission No falls in past 3 months (0 pts) Confusion or Disorientation No (0 pts) Intoxicated or Sedated No (0 pts) Impaired Gait No (0 pts) Mobility Assist Device Used No (0 pt) Altered Elimination No (0 pt) Score/Fall Risk Level 0 - 2 = Low Risk. [facility] ED Fall Risk Assessment (Adult) Score/Fall Risk Level 0 - 2 = Low Risk Oriented to surroundings, Maintained a safe environment, Educated pt \T\ family on fall prevention, incl call for assistance when getting out of bed, Assessed \T\ reinforced patient's understanding of fall precautions, Provided non-skid footwear, Hourly rounding (assess needs \T\ fall precautionary measures) done, Used ambulatory aids as needed (educated on \T\ assisted with), Used gait belt as appropriate. Abuse screen: Denies threats or abuse. Nutritional screening: No deficits noted. Tuberculosis screening: No symptoms or risk factors identified. Assessment: 20:15 General: Appears in no apparent distress. comfortable, obese, well developed, Behavior pf1 is calm, cooperative, appropriate for age, quiet. 20:15 Pain: Complains of pain in abdomen Pain currently is 9 out of 10 on a pain scale. pf1 Neuro: No deficits noted. Level of Consciousness is awake, alert, obeys commands, Oriented to person, place, time, situation. Cardiovascular: No deficits noted. Capillary refill < 3 seconds Patient's skin is warm and dry. Respiratory: No deficits noted. Airway is patent Respiratory effort is even, unlabored, Respiratory pattern is regular, symmetrical. GI: Abdomen is round non-distended, Bowel sounds present X 4 quads. Abd is soft X 4 quads Abdomen is tender to palpation in right lower quadrant. : No deficits noted. No signs and/or symptoms were reported regarding the genitourinary system. EENT: No deficits noted. No signs and/or symptoms were reported regarding the EENT system. 21:00 Reassessment: Patient appears in no apparent distress at this time. Patient and/or pf1 family updated on plan of care and expected duration. Pain level reassessed. Patient is alert, oriented x 3, equal unlabored respirations, skin warm/dry/pink. 22:00 Reassessment: Patient appears in no apparent distress at this time. Patient and/or pf1 family updated on plan of care and expected duration. Pain level reassessed. Patient is alert, oriented x 3, equal unlabored respirations, skin warm/dry/pink. Patient states feeling better. Patient states symptoms have improved. Vital Signs: 19:58 BP 139 / 77; Pulse 72; Resp 16; Temp 99.1; Pulse Ox 98% on R/A; Weight 127.01 kg; iw Height 5 ft. 10 in. ; Pain 9/10; 21:00 BP 133 / 82; Pulse 70; Resp 16; Pulse Ox 100% ; pf1 22:00 BP 118 / 79; Pulse 78; Resp 16; Pulse Ox 100% ; Pain 4/10; pf1 19:58 Body Mass Index 40.18 (127.01 kg, 177.8 cm) iw 19:58 Pain Scale: Adult iw 22:00 Pain Scale: Adult pf1 ED Course: 19:32 Patient arrived in ED. gm2 19:46 John Carvajal MD is Attending Physician. rt 19:58 Triage completed. iw 19:58 Arm band placed on. iw 20:15 Patient has correct armband on for positive identification. Placed in gown. Bed in low pf1 position. Call light in reach. 20:25 Missed attempt(s): 20 gauge in right antecubital area. bc6 20:37 CBC with Diff Sent. bc6 20:37 CMP Sent. bc6 20:37 Lipase Sent. bc6 20:37 Inserted saline lock: 20 gauge in left antecubital area, using aseptic technique. Blood bc6 collected. 21:51 CT Abd/Pelvis - IV Contrast Only In Process Unspecified. EDMS 22:41 Provided Education on: follow up education. pf1 22:41 No provider procedures requiring assistance completed. IV discontinued, intact, pf1 bleeding controlled, No redness/swelling at site. Pressure dressing applied. Administered Medications: 21:25 Drug: Ondansetron IVP 4 mg IVP once; over 2 minutes Route: IVP; Site: left antecubital; pf1 22:20 Follow up: Response: No adverse reaction; Marked relief of symptoms pf1 21:25 Drug: morphine IVP or IV 4 mg IVP once over 4 mins Route: IVP; Infused Over: 4 mins; pf1 Site: left antecubital; 22:20 Follow up: Response: No adverse reaction; Marked relief of symptoms; Pain is decreased; pf1 RASS: Alert and Calm (0) Medication: 22:41 VIS not applicable for this client. pf1 Outcome: 22:24 Discharge ordered by . rt 22:40 Discharged to home ambulatory, with family, pf1 22:40 Condition: improved 22:40 Discharge instructions given to patient, Instructed on discharge instructions, follow up and referral plans. Demonstrated understanding of instructions, follow-up care, 22:41 Patient left the ED. pf1 Signatures: Dispatcher [employer] EDMS Kelley Chu RN RN John Carvajal MD MD rt Sakina Khan RN RN pf1 Geni Gaitan bc6 Lynn Newman gm2 Corrections: (The following items were deleted from the chart) 20:21 20:10 Reassessment: Patient ambulated for 1 minute with PulseOx, oxygen saturation pf1 decreased to 90% on RA. pf1
--- NOTE | 2023-06-15 22:24 | EDPHYS ---
Physician Documentation [facility] Name: Daniel Coronel Age: 27 yrs Sex: Male : 1995 Arrival Date: 06/15/2023 Time: 19:25 Bed 9 Private MD: ED Physician John Carvajal HPI: 06/16 01:40 This 27 yrs old Male presents to ER via Ambulatory with complaints of Abdominal Pain. rt 01:40 Patient presents to the ED with right lower quadrant pain for about 4 days. This rt occurred when he was lifting a heavy object. Reported a swelling to that area. Was concerned because his brother had a germ cell tumor in the abdomen. He denies other acute complaints at this time, symptoms are mild in severity, aching nature, nonradiating, no other aggravating or alleviating factors.. Historical: - Allergies: 06/15 19:58 Amoxicillin; iw 19:58 TETRACYCLINES; iw - PMHx: 19:58 Irritable bowel syndrome; iw - PSHx: 19:58 Cholecystectomy; gastric sleeve; iw - Immunization history:: Adult Immunizations unknown. - Social history:: Smoking status: unknown. ROS: 06/16 01:40 Constitutional: Negative for fever, chills, and weight loss, Neck: Negative for injury, rt pain, and swelling, Cardiovascular: Negative for chest pain, palpitations, and edema, Respiratory: Negative for shortness of breath, cough, wheezing, and pleuritic chest pain, MS/Extremity: Negative for injury and deformity, Skin: Negative for injury, rash, and discoloration, Neuro: Negative for headache, weakness, numbness, tingling, and seizure, Psych: Negative for depression, anxiety, suicide ideation, homicidal ideation, and hallucinations, Abdomen/GI: Positive for abdominal pain, Negative for nausea and vomiting, Exam: 01:40 Constitutional: This is a well developed, well nourished patient who is awake, alert, rt and in no acute distress. Head/Face: Normocephalic, atraumatic. Chest/axilla: Normal chest wall appearance and motion. Nontender with no deformity. No lesions are appreciated. Cardiovascular: Regular rate and rhythm with a normal S1 and S2. No gallops, murmurs, or rubs. Normal PMI, no JVD. No pulse deficits. Respiratory: Lungs have equal breath sounds bilaterally, clear to auscultation and percussion. No rales, rhonchi or wheezes noted. No increased work of breathing, no retractions or nasal flaring. Skin: Warm, dry with normal turgor. Normal color with no rashes, no lesions, and no evidence of cellulitis. MS/ Extremity: Pulses equal, no cyanosis. Neurovascular intact. Full, normal range of motion. Neuro: Awake and alert, GCS 15, oriented to person, place, time, and situation. Cranial nerves II-XII grossly intact. Motor strength 5/5 in all extremities. Sensory grossly intact. Cerebellar exam normal. Normal gait. Psych: Awake, alert, with orientation to person, place and time. Behavior, mood, and affect are within normal limits. 01:40 Abdomen/GI: Mild tenderness to the right lower quadrant, no appreciable masses, distention, hernias palpated, no rebound, guarding, Vital Signs: 06/15 19:58 BP 139 / 77; Pulse 72; Resp 16; Temp 99.1; Pulse Ox 98% on R/A; Weight 127.01 kg; iw Height 5 ft. 10 in. ; Pain 9/10; 21:00 BP 133 / 82; Pulse 70; Resp 16; Pulse Ox 100% ; pf1 22:00 BP 118 / 79; Pulse 78; Resp 16; Pulse Ox 100% ; Pain 4/10; pf1 19:58 Body Mass Index 40.18 (127.01 kg, 177.8 cm) iw 19:58 Pain Scale: Adult iw 22:00 Pain Scale: Adult pf1 MDM: 20:06 Patient medically screened. rt 06/16 01:40 Differential diagnosis: Appendicitis, hernia, mass, abdominal strain. Data reviewed: rt vital signs, nurses notes, lab test result(s), radiologic studies. Independent interpretation of the following test(s) in the Emergency Department CT Scan: My interpretation is No hernia seen on interpretation of CT scan images. Counseling: I had a detailed discussion with the patient and/or guardian regarding the historical points, exam findings, and any diagnostic results supporting the discharge/admit diagnosis, lab results, radiology results, the need for outpatient follow up. Response to treatment: the patient's symptoms have markedly improved after treatment. 06/15 20:04 Order name: CBC with Diff; Complete Time: 21:19 rt 06/15 20:04 Order name: CMP; Complete Time: 21:19 rt 06/15 20:04 Order name: Lipase; Complete Time: 21:19 rt 06/15 20:04 Order name: CT Abd/Pelvis - IV Contrast Only; Complete Time: 22:10 rt 06/15 20:04 Order name: IV Saline Lock; Complete Time: 20:37 rt 06/15 20:04 Order name: Labs collected and sent; Complete Time: 20:37 rt Administered Medications: 06/15 21:25 Drug: Ondansetron IVP 4 mg IVP once; over 2 minutes Route: IVP; Site: left antecubital; pf1 22:20 Follow up: Response: No adverse reaction; Marked relief of symptoms pf1 21:25 Drug: morphine IVP or IV 4 mg IVP once over 4 mins Route: IVP; Infused Over: 4 mins; pf1 Site: left antecubital; 22:20 Follow up: Response: No adverse reaction; Marked relief of symptoms; Pain is decreased; pf1 RASS: Alert and Calm (0) Disposition Summary: 06/15/23 22:24 Discharge Ordered Notes: Location: Home rt Problem: new rt Symptoms: have improved rt Condition: Stable rt Diagnosis - Abdominal wall pain rt Followup: rt - With: Private Physician - When: 5 - 6 days - Reason: Discharge Instructions: - Discharge Summary Sheet rt - Abdominal Pain, Adult rt Forms: - Medication Reconciliation Form rt - Thank You Letter rt - Antibiotic Education rt - Prescription Opioid Use rt - Patient Portal Instructions rt - Leadership Thank You Letter rt Signatures: Dispatcher [employer] Kelley Owens, MARIA VICTORIA IRENE iw John Carvajal MD MD rt Sakina Khan RN RN pf1
[2023-06-15 23:23] VITALS: BP 139/77; TEMP 99.1; O2SAT 98
== END 2023-06-15 22:41 | disposition home or self-care (01) ==
LOC: ER 19:25
DX: R10.31 Right lower quadrant pain (principal); Z88.1 Allergy status to other antibiotic agents
CPT/HCPCS: 85025; 36415; 83690; 80053; 74177; 96375; 96374; 99284; Q9967; J2405

== ENCOUNTER 2023-07-21 19:02 | Emergency (ER) | payer OTHER ==
--- OUTSIDE RECORDS SUMMARY | 2023-07-21 19:06 | XMS REPORT | Continuity of Care Document ---
:1995 Author Organization [facility] t Address [address] [place] [id number] Care Team Providers Name Role Phone PCP, [...] Date Expiration Date S [place] MEDICAID GENERIC [id number] 2021 00:00:00 Problems Condition Condition Condition Status Onset Resolution Last Treating Co mments Source Name Details Category Date Date Treatment Clinician Date Asthma Asthma Disease Active Univers 5-08 ity of 00:00: [place] [address] Medical Branch Obesity Obesity Disease Active Univers 2-17 ity of 00:00: [place] 00 Medical Branch Acne Acne Disease Active Univers 2-17 ity of 00:00: [place] [address] Medical Branch Ingrown Ingrown Disease Active Univers toenail toenail 2-17 ity of 00:00: [place] [address] Medical Branch Allergies, Adverse Reactions, Alerts Allergy [...] Source Exposure to 2022-09-30 2022-10-10 Not sure [facility] SARS-CoV-2 00:00:00 20:20:00 [facility] (event) [place] Alcohol intake 2022-02-27 2022-02-27 Current [facility] 00:00:00 00:00:00 non-drinker of [facility] alcohol Branch (finding) Sex Ass[birth year] Universit y of 00:00:00 00:00:00 [facility] Smoking Status Start Date Stop Date Source Never smoked tobacco [facility] Medications Ordered Filled Start Stop Current Ordering Indication Dosage Frequency Signature Comments Components Source Medication Medication Date Date Medication? Clinician (SIG) Name Name benzonatate Yes [id number] 200mg Take 1 Univers 200 mg 2-22 capsule by ity of capsule 00:00: mouth 3 00 (three) Medical times Branch daily as needed for Cough. ibuprofen Yes [id number] 800mg Take 1 U nivers 800 mg 2-22 tablet by ity of tablet 00:00: mouth [place] 00 every 8 Medical (eight) Branch hours as needed for Pain (scale 4-6) or Temp > 38.5 C. meclizine 2021-08 No 25mg 25 mg, Unive rs (TRAVEL-EAS 0-13 10-13 Oral, ity of E 03:00: 03:09 ONCE, 1 [place] (MECLIZINE) 00 :00 dose, On [facility] ) tablet 25 Wed Branch mg 05/30/22 at 2200, AWILDA ketorolac 2021-08 No 30mg 30 mg, Unive rs (TORADOL) 0- 10- Slow IV ity of injection 03:00: [...] 00 :00 dose, On Medical 1,000 mg [facility] Branch 05/30/22 at 2100, AWILDA
Re ason for Anti-Infec tive: Empiric Therapy for Suspected Infection< br>Empiric Therapy Site: Urine
D uration of therapy: 72 hours meclizine 2021-08 Yes [id number] 25mg Take 1 U nivers 25 mg 0-12 tablet by ity of tablet 00:00: mouth [place] 00 every 6 Medical (six) Branch hours. meclizine 2021-08 Yes [id number] 25mg Take 1 U nivers 25 mg 0-12 tablet by ity of tablet 00:00: mouth [place] 00 every 6 Medical (six) Branch hours. azithromyci No 500mg 500 mg, U nivers n 6-08 06-08 Oral, ity of (ZITHROMAX) 03:30: 03:39 ONCE, 1 [place] tablet 500 00 :00 dose, On Medic al mg 01/23/22 Branch at 2230, AWILDA
Re ason for Anti-Infec tive: Documented Infection< br>Documen amaya Infection Site: Urine
D uration of Therapy: 7 days cefTRIAXone Yes 500mg 500 mg, Un dewayne (ROCEPHIN) 6-08 Intramuscu ity of injection 03:15: lar, Q24H, [place] 500 mg 00 First dose Medical on [facility] Branch 01/23/22 at 2215, Until Discontinu ed, AWILDA
Re ason for Anti-Infec tive: Empiric Therapy for Suspected Infection< br>Empiric Therapy Site: Urine<b r>Duration of therapy: 72 hours metroNIDAZO 2021- No [id number] 500mg Take 1 Univers LE 500 mg 01-23 06-15 tablet by ity of tablet 00:00: 04:59 mouth 2 [place] 00 :00 (two) Medical times Branch daily for 7 days. ibuprofen 2012-08 Yes [id number] 800mg Take 1 Tab Univers (MOTRIN) 0-17 by mouth 3 ity o f 800 mg 00:00: (three) [place] tablet 00 times Medical daily with Branch meals. ibuprofen 2012-08 Yes [id number] 800mg Take 1 Tab Univers (MOTRIN) 0-17 by mouth 3 ity o f 800 mg 00:00: (three) [place] tablet 00 times Medical daily with Branch meals. ibuprofen 2012-08 Yes [id number] 800mg Take 1 Tab Univers (MOTRIN) 0-17 by mouth 3 ity o f 800 mg 00:00: (three) [place] tablet 00 times Medical daily with Branch meals. fluticasone Yes [id number] 2{spray Use 2 Univers (FLONASE) 9-18 } Sprays in ity o f 50 00:00: each [place] mcg/actuati 00 nostril Medic al on nasal daily. Use Branc h spray alternate hand to administer albuterol Yes [id number] 2{puff} Inhale 2 Univers (VENTOLIN) 9-18 Puffs ity of 90 00:00: every 4 [place] mcg/actuati 00 (four) Medica l on inhaler hours as Branc h needed for Wheezing or Shortness of Breath. codeine-gua Yes [id number] 5mL Take 5 mL Univers ifenesin 9-18 by mouth ity of (ROBITUSSIN 00:00: every 6 [place] AC) 10-100 00 (six) Medical mg/5 mL hours as Branch solution needed for Cough. fluticasone Yes [id number] 2{spray Use 2 Univers (FLONASE) 9-18 } Sprays in ity o f 50 00:00: each [place] mcg/actuati 00 nostril Medic al on nasal daily. Use Branc h spray alternate hand to administer albuterol Yes [id number] 2{puff} Inhale 2 Univers (VENTOLIN) 9-18 Puffs ity of 90 00:00: every 4 [place] mcg/actuati 00 (four) Medica l on inhaler hours as Branc h needed for Wheezing or Shortness of Breath. codeine-gua Yes [id number] 5mL Take 5 mL Univers ifenesin 9-18 by mouth ity of (ROBITUSSIN 00:00: every 6 [place] AC) 10-100 00 (six) Medical mg/5 mL hours as Branch solution needed for Cough. fluticasone Yes [id number] 2{spray Use 2 Univers (FLONASE) 9-18 } Sprays in ity o f 50 00:00: each [place] mcg/actuati 00 nostril Medic al on nasal daily. Use Branc h spray alternate hand to administer albuterol Yes [id number] 2{puff} Inhale 2 Univers (VENTOLIN) 9-18 Puffs ity of 90 00:00: every 4 [place] mcg/actuati 00 (four) Medica l on inhaler hours as Branc h needed for Wheezing or Shortness of Breath. codeine-gua Yes [id number] 5mL Take 5 mL Univers ifenesin 9-18 by mouth ity of (ROBITUSSIN 00:00: every 6 [place] AC) 10-100 00 (six) Medical mg/5 mL hours as Branch solution needed for Cough. azithromyci Yes [id number] 500mg Take 1 Tab Univers n 5-08 by mouth ity of (ZITHROMAX) 00:00: daily. [place] 500 mg 00 Medical tablet Branch codeine-gua Yes [id number] 5mL Take 5-10 Univers ifenesin 5-08 mL by ity of (CHERATUSSI 00:00: mouth [place] N AC) 00 every 6 Medical 10-100 mg/5 (six) Branch mL solution hours as needed for Cough. azithromyci Yes [id number] 500mg Take 1 Tab Univers n 5-08 by mouth ity of (ZITHROMAX) 00:00: daily. [place] 500 mg 00 Medical tablet Branch codeine-gua Yes [id number] 5mL Take 5-10 Univers ifenesin 5-08 mL by ity of (CHERATUSSI 00:00: mouth [place] N AC) 00 every 6 Medical 10-100 mg/5 (six) Branch mL solution hours as needed for Cough. azithromyci Yes [id number] 500mg Take 1 Tab Univers n 5-08 by mouth ity of (ZITHROMAX) 00:00: daily. [place] 500 mg 00 Medical tablet Branch codeine-gua Yes [id number] 5mL Take 5-10 Univers ifenesin 5-08 mL [...] needed for Pain (scale 4-6). albuterol Yes [id number] 2.5mg Inhale 0.5 Univers 2.5 mg/0.5 2-14 mL every 4 ity of mL 00:00: (four) [place] nebulizer 00 hours as Medica l solution needed for Branc h Wheezing or Shortness of Breath. albuterol Yes [id number] 2.5mg Inhale 0.5 Univers 2.5 mg/0.5 2-14 mL every 4 ity of mL 00:00: (four) [place] nebulizer 00 hours as Medica l solution needed for Branc h Wheezing or Shortness of Breath. albuterol Yes [id number] 2.5mg Inhale 0.5 Univers 2.5 mg/0.5 2-14 mL every 4 ity of mL 00:00: (four) [place] nebulizer 00 hours as Medica l solution needed for Branc h Wheezing or Shortness of Breath. fexofenadin Yes [id number] 180mg Take 1 Tab Univers e (DOMONIQUE) 1-04 by mouth ity of 180 mg 00:00: daily. [place] tablet [facility] fexofenadin Yes [id number] 180mg Take 1 Tab Univers e (DOMONIQUE) 1-04 by mouth ity of 180 mg 00:00: daily. [place] tablet [facility] fexofenadin Yes [id number] 180mg Take 1 Tab Univers e (DOMONIQUE) 1-04 by mouth ity of 180 mg 00:00: daily. [place] tablet [address] [place] [address] Vital Signs Vital Name Observation Time Observation Value Comments Source Systolic blood 2022-10-11 02:21:00 138 mm[Hg] Univer sity pressure [facility] [place] [facility] Diastolic blood 2022-10-11 02:21:00 84 mm[Hg] [facility] rate 2022-10-11 02:21:00 81 /min [facility] Body temperature 2022-10-11 02:21:00 37 Dianna [facility] Respiratory rate 2022-10-11 02:21:00 20 /min [facility] Body height 2022-10-11 02:21:00 177.8 cm [facility] Body weight 2022-10-11 02:21:00 127.007 kg [facility] BMI 2022-10-11 02:21:00 40.18 kg/m2 [facility] Oxygen saturation in 2022-10-11 02:21:00 98 /min [facility] Arterial blood by [facility] Pulse oximetry Branch Systolic blood 2022-05-31 04:00:00 120 [facility]Hg[facility] 2022-05-31 04:00:00 68 mm[Hg] Unive rsity of pressure [place] Medical [place] Heart rate 2022-05-31 04:00:00 72 /min Universi ty of [facility] [place] [facility] Oxygen saturation in 2022-05-31 04:00:00 100 /min University of Arterial blood by [facility] Pulse oximetry Branch Respiratory rate 2022-05-31 03:45:00 18 /min Univ ersity of [facility] [place] [facility] Body temperature 2022-05-31 01:20:00 36.72 Dianna [facility] [place] Body height 2022-05-31 01:18:00 177.8 cm Universi ty of [facility] [place] [facility] Body weight 2022-05-31 01:18:00 127.007 kg Universi ty of [facility] [place] [facility] BMI 2022-05-31 01:18:00 40.18 kg/m2 Universi ty of [place] Medical [place] BMI 2022-01-24 01:27:00 39.05 kg/m2 Universi ty of [place] Medical [place] Oxygen saturation in 2022-01-24 01:27:00 96 /min University of Arterial blood by [facility] Pulse oximetry Branch Systolic blood 2022-01-24 01:27:00 163 mm[Hg] Univer sity of pressure [facility] [place] [facility] Diastolic blood 2022-01-24 01:27:00 80 mm[Hg] Unive rsity of [facility] Medical [place] Heart rate 2022-01-24 01:27:00 68 /min Universi ty of [facility] [place] [facility] Body temperature 2022-01-24 01:27:00 36.67 Dianna [facility] 2022-01-24 01:27:00 20 /min [facility] Body height 2022-01-24 01:27:00 180.3 cm Universi ty of [place] Medical [place] Body weight 2022-01-24 01:27:00 127.007 kg [facility] Procedures Procedure Date / Time Performed Performing Clinician Sour e RAPID INFLUENZA A/B 2022-10-11 02:26:00 Gabino Womack [facility] COVID-19 (ID NOW RAPID 2022-10-11 02:26:00 Gabino Womack [facility] TESTING) Medical Branch NOTICE OF PRIVACY 2022-10-11 02:10:30 Doctor Unassigned, No [facility] PRACTICES Name Medical Branch CONSENT/REFUSAL FOR 2022-10-11 02:10:04 Doctor Unassigned, No [facility] [place] DIAGNOSIS AND Name Medical Branch TREATMENT COMP. METABOLIC PANEL 2022-05-31 02:09:00 [facility] ([id number]) Medical Branch CBC WITH DIFF 2022-05-31 02:09:00 Lizzy [facility] URINALYSIS 2022-05-31 02:09:00 [facility] [place] [facility] CONSENT/REFUSAL FOR 2022-05-31 01:05:43 Doctor Unassigned, No [facility] [place] DIAGNOSIS AND Name Medical Branch TREATMENT URINALYSIS 2022-01-24 03:27:00 Esvin Tinajero [facility] ASSIGNMENT OF BENEFITS 2022-01-24 01:05:13 Doctor Unassigned, No [facility] Name Medical Branch CONSENT/REFUSAL FOR 2022-01-24 01:04:57 Doctor Unassigned, No [facility] [place] DIAGNOSIS AND Name Medical Branch TREATMENT Encounters Start End Encounter Admission Attending Care Care Encounter Source Date/Time Date/Time Type Type Clinicians Facility Department ID 2022-10-10 2022-10-10 Emergency X JUAN ALBERTO [facility] ERT [id number] Univers 20:27:00 23:59:00 GABINO [facility] 2022-10-10 2022-10-10 Emergency Juan Alberto [facility] [id number] Univers 20:27:00 23:59:00 Gabino Gannon FLOR[facility] [id number] [facility] [id number] [facility] [id number] [facility] 084 Branch 2022-05-30 2022-05-30 Emergency [facility] [id number] Univers 20:19:00 23:28:00 [facility] 2022-05-30 2022-05-30 [facility] [id number] Univers 20:19:00 23:28:00 [facility] [id number] it y of [place] [id number] [facility] [id number] [address] ([facility]) 2022-01-23 2022-01-23 Emergency [facility] [id number] [facility] 20:29:00 22:56:00 [facility] ity [facility] 2022-01-23 2022-01-23 Emergency [facility] [id number] [facility] 20:29:00 22:56:00 [facility] [id number] ity of [place] [id number] [facility] [id number] [address] ([facility]) Results Test Description Test Time Test Comments Results Result Comments Source COMP. METABOLIC PANEL (44611) 2022-05-31 02:25:34 Test Item Value Reference Range Interpretation Comme nts NA (test code = 9273476316) 140 mmol/L 135-145 K (test code = 0279199031) 4.3 mmol/L 3.5-5 CL (test code = 2365985859) 107 mmol/L 98-108 CO2 TOTAL (test code = 25 mmol/L 23-31 2646112793) AGAP (test code = 3597151699) 2-16 BUN (test code = 4263559648) 16 mg/dL 7-23 GLUCOSE (test code = 7852017875) 84 mg/dL 70-110 CREATININE (test code = 0.90 mg/dL 0.6-1.25 9796963297) TOTAL BILI (test code = 0.6 mg/dL 0.1-1.7 1941404670) CALCIUM (test code = 3583005659) 9.5 mg/dL 8.6-10.6 T PROTEIN (test code = 6.8 g/dL 6.3-8.2 7862854753) ALBUMIN (test code = 8879560667) 4.4 g/dL 3.5-5 ALK PHOS (test code = 7113318913) 58 U/L 34-122 ALTv (test code = 1742-6) 36 U/L 5-50 AST(SGOT) (test code = 38 U/L 13-40 6879151307) eGFR (test code = 0249919017) mL/min/1.73m2 FRANSISCO (test code = FRANSISCO) Association [...] or urine or abnormalities in imaging tests). [facility] WITH [id number] 02:16:35 Test Item Value Reference Range Interpretation Comments WBC (test code = See_Comment [Automated 7452-2) message] The sy stem which generated this result transmitted reference range : 4.20 - 10.70 10*3/?L. The reference range was not used to interpret this result as normal/abnormal . RBC (test code = See_Comment [Automated 771-3) message] The sy stem which generated this [...] RDW-SD (test code = 41.4 fL 38.5-51.6 57296-0) RDW-CV (test code = 12.3 % 12.1-15.4 788-0) PLT (test code = See_Comment [Automated 777-3) message] The sy stem which generated this result transmitted reference range : 150 - 328 10*3/ ?L. The reference r josé miguel was not used to interpret this result as normal/abnormal . MPV (test code = 10.3 fL 9.8-13 82326-4) NRBC/100 WBC (test See_Comment [Automat ed code = 4184359973) message] The system which generated this result transmitted reference range : 0.0 - 10.0 /100 WBCs. The refer ence range was not u sed to interpret th is result as normal/abnormal . NRBC x10^3 (test code See_Comment [Auto mated = 6653488653) message] The s ystem which generated this result transmitted reference range : 10*3/?L. The reference range was not used to interpret this result as normal/abnormal . GRAN MAT (NEUT) % 59.3 % (test code = 770-8) IMM GRAN % (test code 0.40 % = 7066243311) LYMPH % (test code = 26.5 % 736-9) MONO % (test code = 7.5 % 5905-5) EOS % (test code = 5.2 % 713-8) BASO % (test code = 1.1 % 706-2) GRAN MAT x10^3(ANC) 4.35 10*3/uL 1.99-6.95 (test code = 6990474226) IMM GRAN x10^3 (test 0.03 10*3/uL 0-0.06 code = 1284081052) LYMPH x10^3 (test code 1.94 10*3/uL 1.09-3.23 = 731-0) MONO x10^3 (test code 0.55 10*3/uL 0.36-1.02 = 742-7) EOS x10^3 (test code = 0.38 10*3/uL 0.06-0.53 711-2) BASO x10^3 (test code 0.08 10*3/uL 0.01-0.09 = 704-7) Lab Interpretation Abnormal (test code = 49465-6) [facility]"
--- NOTE | 2023-07-21 20:02 | RAD REPORT ---
EXAM DESCRIPTION: Petar Pa And Lat (2 Views)07/21/2023 7:45 pm CLINICAL HISTORY: Cough COMPARISON: April 2023 FINDINGS: Borderline prominence left hilum. The remainder of the lungs appear clear of acute infiltrate. The heart is normal size IMPRESSION: Borderline prominence of hilum. Follow-up PA and lateral chest series in 1 month is manfred mmended for re-evaluation
--- NOTE | 2023-07-21 20:58 | EDPHYS ---
Physician Documentation [facility] Name: Daniel Coronel Age: 27 yrs Sex: Male : 1995 Arrival Date: 07/21/2023 Time: 19:02 Bed IW10 Private MD: ED Physician Eduardo Trent HPI: 07/21 19:26 This 27 yrs old Male presents to ER via Unassigned with complaints of Flu Symptoms. kb 19:26 patient is a 27-year-old male who presents for cough, congestion, fever, body aches, kb chills and shortness of breath that started this morning and is gotten worse throughout the day. States he had pneumonia several times in the past and this feels similar.. Historical: - Allergies: 19:53 Amoxicillin; kl 19:53 TETRACYCLINES; kl - Home Meds: 19:53 Dicyclomine Oral [Active]; kl - PMHx: 19:53 Irritable bowel syndrome; kl - PSHx: 19:53 Cholecystectomy; gastric sleeve; kl - Immunization history:: Adult Immunizations not immunized. - Social history:: Smoking status: Patient denies any tobacco usage or history of. ROS: 19:26 Abdomen/GI: Negative for abdominal pain, nausea, vomiting, diarrhea, and constipation, kb 19:26 Constitutional: Positive for body aches, chills, fatigue, fever, malaise, 19:26 Respiratory: Positive for cough, shortness of breath, 19:26 All other systems are negative, Exam: 19:26 Constitutional: This is a well developed, well nourished patient who is awake, alert, kb and in no acute distress. Head/Face: Normocephalic, atraumatic. ENT: Moist Mucous membranes Cardiovascular: Regular rate Respiratory: Respirations even and unlabored. No increased work of breathing. Talking in full sentences Abdomen/GI: Soft, non-tender. No distention Skin: Warm, dry with normal turgor. Normal color. MS/ Extremity: Pulses equal, no cyanosis. Neurovascular intact. Full, normal range of motion. Neuro: Awake and alert, GCS 15, oriented to person, place, time, and situation. Moves all extremities. Normal gait. Vital Signs: 19:51 BP 121 / 83; Pulse 118; Resp 16; Temp 99.4(TE); Pulse Ox 100% on R/A; Weight 131.54 kg kl (R); Height 5 ft. 10 in. (R); 21:11 Temp 98.9(TE); kl 19:51 Body Mass Index 41.61 (131.54 kg, 177.8 cm) MDM: 19:06 Patient medically screened. kb 19:26 Differential diagnosis: flu, covid, pneumonia, uri. Data reviewed: vital signs, nurses kb notes. 20:44 Counseling: I had a detailed discussion with the patient and/or guardian regarding the kb historical points, exam findings, and any diagnostic results supporting the discharge/admit diagnosis, lab results, radiology results, the need for outpatient follow up, a family practitioner, to return to the emergency department if symptoms worsen or persist or if there are any questions or concerns that arise at home. 07/21 19:10 Order name: Flu; Complete Time: 20:27 kb 07/21 19:10 Order name: COVID-19 SARS RT PCR; Complete Time: 20:44 kb 07/21 19:10 Order name: Chest Pa And Lat (2 Views) XRAY; Complete Time: 20:03 kb Administered Medications: No medications were administered Disposition: 19:36 I was immediately available on-site in the Emergency Department for consultation in the ms3 care of the patient. Disposition Summary: 07/21/23 20:58 Discharge Ordered Notes: Location: Home kb Condition: Stable kb Diagnosis - Acute upper respiratory infection, unspecified kb Followup: kb - With: Emergency Department - When: As needed - Reason: Worsening of condition Followup: kb - With: Private Physician - When: 2 - 3 days - Reason: Recheck today's complaints, Continuance of care, Re-evaluation by your physician Discharge Instructions: - Discharge Summary Sheet kb - Upper Respiratory Infection, Adult, [id number] kb - Viral Respiratory Infection, Yesw-Zs-Yydi kb Forms: - Medication Reconciliation Form kb - Thank You Letter kb - Antibiotic Education kb - Prescription Opioid Use kb - Patient Portal Instructions kb - Leadership Thank You Letter kb - Work release form lg3 Signatures: Dispatcher [employer] Katherine Klein, JASMYNC DEMI-Maribel Medina RN RN Eduardo Boudreaux, DO ms3
--- NOTE | 2023-07-21 20:58 | ER ---
Nurse's Notes [facility] Name: Daniel Coronel Age: 27 yrs Sex: Male : 1995 Arrival Date: 07/21/2023 Time: 19:02 Bed IW10 Private MD: Diagnosis: Acute upper respiratory infection, unspecified Presentation: 07/21 19:51 Chief complaint: Patient states: flu symptoms began this am cough fever chills. Coronavirus screen: Vaccine status: Patient reports being unvaccinated. Ebola Screen: Patient negative for fever greater than or equal to 101.5 degrees Fahrenheit, and additional compatible Ebola Virus Disease symptoms. Initial Sepsis Screen: Does the patient meet any 2 criteria? No. Patient's initial sepsis screen is negative. Does the patient have a suspected source of infection? No. Patient's initial sepsis screen is negative. Risk Assessment: Do you want to hurt yourself or someone else? Patient reports no desire to harm self or others. Onset of symptoms was July 21, 2023. 19:51 Method Of Arrival: Ambulatory 19:51 Acuity: ALY 4 Triage Assessment: 19:52 General: Appears uncomfortable, Behavior is calm, cooperative. Pain: Complains of pain kl in body aches Pain currently is 8 out of 10 on a pain scale. Respiratory: No deficits noted. Historical: - Allergies: 19:53 Amoxicillin; kl 19:53 TETRACYCLINES; kl - Home Meds: 19:53 Dicyclomine Oral [Active]; kl - PMHx: 19:53 Irritable bowel syndrome; kl - PSHx: 19:53 Cholecystectomy; gastric sleeve; kl - Immunization history:: Adult Immunizations not immunized. - Social history:: Smoking status: Patient denies any tobacco usage or history of. Screenin:11 [facility] ED Fall Risk Assessment (Adult) History of falling in the last 3 months, including since admission No falls in past 3 months (0 pts) Confusion or Disorientation No (0 pts) Intoxicated or Sedated No (0 pts) Impaired Gait No (0 pts) Mobility Assist Device Used No (0 pt) Altered Elimination No (0 pt) Score/Fall Risk Level 0 - 2 = Low Risk Oriented to surroundings, Maintained a safe environment. Abuse screen: Denies threats or abuse. Nutritional screening: No deficits noted. Tuberculosis screening: No symptoms or risk factors identified. Assessment: 21:10 General: Appears in no apparent distress. Behavior is calm, cooperative. Respiratory: No deficits noted. Airway is patent Trachea midline Respiratory effort is even, unlabored, Respiratory pattern is regular, symmetrical. Vital Signs: 19:51 BP 121 / 83; Pulse 118; Resp 16; Temp 99.4(TE); Pulse Ox 100% on R/A; Weight 131.54 kg kl (R); Height 5 ft. 10 in. (R); 21:11 Temp 98.9(TE); kl 19:51 Body Mass Index 41.61 (131.54 kg, 177.8 cm) ED Course: 19:05 Patient arrived in ED. mr 19:06 Katherine Fernandes FNP-C [facility]. kb 19:06 Eduardo Trent DO is Attending Physician. kb 19:47 Chest Pa And Lat (2 Views) XRAY In Process Unspecified. EDMS 19:52 Triage completed. kl 21:11 Patient has correct armband on for positive identification. kl 21:11 No provider procedures requiring assistance completed. Patient did not have IV access kl during this emergency room visit. Administered Medications: No medications were administered Medication: 21:11 VIS not applicable for this client. Outcome: 20:58 Discharge ordered by . kb 21:12 Discharged to home ambulatory, with family, 21:12 Condition: good 21:12 Discharge instructions given to patient, Instructed on discharge instructions, follow up and referral plans. Demonstrated understanding of instructions, follow-up care, 21:12 Patient left the ED. Signatures: Dispatcher [employer] EDSD Katherine Fernandes FNP-C FNP-Ckb Lewis, Kimberly, RN RN romero OsborneMarielena oconnor, Reg Reg mr
[2023-07-21 21:34] VITALS: BP 121/83; O2SAT 100
[2023-07-21 21:35] VITALS: TEMP 98.9
== END 2023-07-21 21:12 | disposition home or self-care (01) ==
LOC: ER 19:02
DX: J06.9 Acute upper respiratory infection, unspecified (principal); Z11.52 Encounter for screening for COVID-19
CPT/HCPCS: 71046; 87635; 87804; 99282

== ENCOUNTER 2023-07-23 20:47 | Emergency (ER) | payer OTHER ==
--- OUTSIDE RECORDS SUMMARY | 2023-07-23 20:50 | XMS REPORT | Continuity of Care Document ---
:1995 Author Organization [facility] t Address [address] [place] [id number] Care Team Providers Name Role Phone PCP, [...] Date Expiration Date [place] MEDICAID GENERIC [id number] 2021 00:00:00 Problems Condition Condition Condition Status Onset Resolution Last Treating Co mments Source Name Details Category Date Date Treatment Clinician Date Asthma Asthma Disease Active Univers 5-08 ity of 00:00: [place] [address] Medical Branch Obesity Obesity Disease Active Univers 2-17 ity of 00:00: [place] 00 Medical Branch Acne Acne Disease Active Univers 2-17 ity of 00:00: [place] [address] Medical Branch Ingrown Ingrown Disease Active Univers toenail toenail 2-17 ity of 00:00: [place] [address] Medical Branch Allergies, Adverse Reactions, Alerts Allergy [...] Exposure to 2022-09-30 2022-10-10 Not sure [facility] SARS-CoV-2 00:00:00 20:20:00 [facility] [place] [facility] (event) [place] Alcohol intake 2022-02-27 2022-02-27 Current [facility] 00:00:00 00:00:00 non-drinker of [facility] alcohol Branch (finding) Sex Ass[birth year] At [birth year] Universit y of 00:00:00 00:00:00 [facility] Smoking Status Start Date Stop Date Source Never smoked tobacco [facility] Medications Ordered Filled Start Stop Current Ordering Indication Dosage Frequency Signature Comments Components Source Medication Medication Date Date Medication? Clinician (SIG) Name Name benzonatate Yes [id number] 200mg Take 1 Univers 200 mg 2-22 capsule by ity of capsule 00:00: mouth 3 00 (three) Medical times Branch daily as needed for Cough. ibuprofen Yes [id number] 800mg Take 1 U nivers 800 mg 2-22 tablet by ity of tablet 00:00: mouth [place] 00 every 8 Medical (eight) Branch hours as needed for Pain (scale 4-6) or Temp > 38.5 C. meclizine 2021-08 No 25mg 25 mg, Unive rs (TRAVEL-EAS 0-13 10-13 Oral, ity of E 03:00: 03:09 ONCE, 1 [place] (MECLIZINE) 00 :00 dose, On [facility] ) tablet 25 Wed Branch mg [...] 00 :00 dose, On Medical 1,000 mg [facility] Branch 05/30/22 at 2100, AWILDA
Re ason for Anti-Infec tive: Empiric Therapy for Suspected Infection< br>Empiric Therapy Site: Urine
D uration of therapy: 72 hours meclizine 2021-08 Yes [id number] 25mg Take 1 U nivers 25 mg 0-12 tablet by ity of tablet 00:00: mouth [place] 00 every 6 Medical (six) Branch hours. meclizine 2021-08 Yes [id number] 25mg Take 1 U nivers 25 mg [...] 500 mg 00 First dose Medical on [facility] Branch 01/23/22 at 2215, Until Discontinu ed, AWILDA
Re ason for Anti-Infec tive: Empiric Therapy for Suspected Infection< br>Empiric Therapy Site: Urine<b r>Duration of therapy: 72 hours metroNIDAZO 2021- No [id number] 500mg Take 1 Univers LE 500 mg 01-23 06-15 tablet by ity of tablet 00:00: 04:59 mouth 2 [place] 00 :00 (two) Medical times Branch daily for 7 days. ibuprofen 2012-08 Yes [id number] 800mg Take 1 Tab Univers (MOTRIN) 0-17 by mouth 3 ity o f 800 mg 00:00: (three) [place] tablet 00 times Medical daily with Branch meals. ibuprofen 2012-08 Yes [id number] 800mg Take 1 Tab Univers (MOTRIN) 0-17 by mouth 3 ity o f 800 mg 00:00: (three) [place] tablet 00 times Medical daily with Branch meals. ibuprofen 2012-08 Yes [id number] 800mg Take 1 Tab Univers (MOTRIN) 0-17 by mouth 3 ity o f 800 mg 00:00: (three) [place] tablet 00 times Medical daily with Branch meals. fluticasone Yes [id number] 2{spray Use 2 Univers (FLONASE) 9-18 } Sprays in ity o f 50 00:00: each [place] mcg/actuati 00 nostril Medic al on nasal daily. Use Branc h spray alternate hand to administer albuterol Yes [id number] 2{puff} Inhale 2 Univers (VENTOLIN) 9-18 Puffs ity of 90 00:00: every 4 [place] mcg/actuati 00 (four) Medica l on inhaler hours as Branc h needed for Wheezing or Shortness of Breath. codeine-gua Yes [id number] 5mL Take 5 mL Univers ifenesin 9-18 by mouth ity of (ROBITUSSIN 00:00: every 6 [place] as AC) 10-100 00 (six) Medical mg/5 mL hours as Branch solution needed for Cough. fluticasone Yes [id number] 2{spray Use 2 Univers (FLONASE) 9-18 } Sprays in ity o f 50 00:00: each [place] mcg/actuati 00 nostril Medic al on nasal daily. Use Branc h spray alternate hand to administer albuterol Yes [id number] 2{puff} Inhale 2 Univers (VENTOLIN) 9-18 Puffs ity of 90 00:00: every 4 [place] mcg/actuati 00 (four) Medica l on inhaler hours as Branc h needed for Wheezing or Shortness of Breath. codeine-gua Yes [id number] 5mL Take 5 mL Univers ifenesin 9-18 by mouth ity of (ROBITUSSIN 00:00: every 6 [place] as AC) 10-100 00 (six) Medical mg/5 mL hours as Branch solution needed for Cough. fluticasone Yes [id number] 2{spray Use 2 Univers (FLONASE) 9-18 } Sprays in ity o f 50 00:00: each [place] mcg/actuati 00 nostril Medic al on nasal daily. Use Branc h spray alternate hand to administer albuterol Yes [id number] 2{puff} Inhale 2 Univers (VENTOLIN) 9-18 Puffs ity of 90 00:00: every 4 [place] mcg/actuati 00 (four) Medica l on inhaler hours as Branc h needed for Wheezing or Shortness of Breath. codeine-gua Yes [id number] 5mL Take 5 mL Univers ifenesin 9-18 by mouth ity of (ROBITUSSIN 00:00: every 6 [place] as AC) 10-100 00 (six) Medical mg/5 mL hours as Branch solution needed for Cough. azithromyci Yes [id number] 500mg Take 1 Tab Univers n 5-08 by mouth ity of (ZITHROMAX) 00:00: [place]. [place] 500 mg 00 Medical tablet Branch codeine-gua Yes [id number] 5mL Take 5-10 Univers ifenesin 5-08 mL by ity of (CHERATUSSI 00:00: mouth [place] N AC) 00 every 6 Medical 10-100 mg/5 (six) Branch mL solution hours as needed for Cough. azithromyci Yes [id number] 500mg Take 1 Tab Univers n 5-08 by mouth ity of (ZITHROMAX) 00:00: daily. [place] 500 mg 00 Medical tablet Branch codeine-gua Yes [id number] 5mL Take 5-10 Univers ifenesin 5-08 mL by ity of (CHERATUSSI 00:00: mouth [place] N AC) 00 every 6 Medical 10-100 mg/5 (six) Branch mL solution hours as needed for Cough. azithromyci Yes [id number] 500mg Take 1 Tab Univers n 5-08 by mouth ity of (ZITHROMAX) 00:00: daily. [place] 500 mg 00 Medical tablet Branch codeine-gua Yes [id number] 5mL Take 5-10 Univers ifenesin 5-08 mL [...] needed for Pain (scale 4-6). albuterol Yes [id number] 2.5mg Inhale 0.5 Univers 2.5 mg/0.5 2-14 mL every 4 ity of mL 00:00: (four) [place] nebulizer 00 hours as Medica l solution needed for Branc h Wheezing or Shortness of Breath. albuterol Yes [id number] 2.5mg Inhale 0.5 Univers 2.5 mg/0.5 2-14 mL every 4 ity of mL 00:00: (four) [place] nebulizer 00 hours as Medica l solution needed for Branc h Wheezing or Shortness of Breath. albuterol Yes [id number] 2.5mg Inhale 0.5 Univers 2.5 mg/0.5 2-14 mL every 4 ity of mL 00:00: (four) [place] nebulizer 00 hours as Medica l solution needed for Branc h Wheezing or Shortness of Breath. fexofenadin Yes [id number] 180mg Take 1 Tab Univers e (DOMONIQUE) 1-04 by mouth ity of 180 mg 00:00: daily. [place] tablet [facility] fexofenadin Yes [id number] 180mg Take 1 Tab Univers e (DOMONIQUE) 1-04 by mouth ity of 180 mg 00:00: daily. [place] tablet [facility] fexofenadin Yes [id number] 180mg Take 1 Tab Univers e (DOMONIQUE) 1-04 by mouth ity of 180 mg 00:00: daily. [place] tablet [address] [place] [address] Vital Signs Vital Name Observation Time Observation Value Comments Source Systolic blood 2022-10-11 02:21:00 138 mm[Hg] Univer sity pressure [facility] Diastolic blood 2022-10-11 02:21:00 84 [facility]Hg[facility] 2022-10-11 02:21:00 81 /min [facility] Body temperature 2022-10-11 02:21:00 37 Dianna [facility] Respiratory rate 2022-10-11 02:21:00 20 /min [facility] Body height 2022-10-11 02:21:00 177.8 cm [facility] Body weight 2022-10-11 02:21:00 127.007 kg [facility] BMI 2022-10-11 02:21:00 40.18 kg/m2 [facility] Oxygen saturation in 2022-10-11 02:21:00 98 /min [facility] Arterial blood by [facility] Pulse oximetry Branch Systolic blood 2022-05-31 04:00:00 120 mm[Hg] [facility] Diastolic blood 2022-05-31 04:00:00 68 mm[Hg] Unive rsity of pressure [place] [facility] [place] Heart rate 2022-05-31 04:00:00 72 /min Universi ty of [facility] Oxygen saturation in 2022-05-31 04:00:00 100 /min University of Arterial blood by [facility] Pulse oximetry Branch Respiratory rate 2022-05-31 03:45:00 18 /min Univ ersity of [facility] Body temperature 2022-05-31 01:20:00 36.72 Dianna [facility] [place] Body height 2022-05-31 01:18:00 177.8 cm Universi ty of [facility] Body weight 2022-05-31 01:18:00 127.007 kg Universi ty of [facility] BMI 2022-05-31 01:18:00 40.18 kg/m2 Universi ty of [place] [facility] [place] BMI 2022-01-24 01:27:00 39.05 kg/m2 Universi ty of [place] [facility] [place] Oxygen saturation in 2022-01-24 01:27:00 96 /min University of Arterial blood by [facility] Pulse oximetry Branch Systolic blood 2022-01-24 01:27:00 163 mm[Hg] Univer sity of pressure [facility] Diastolic blood 2022-01-24 01:27:00 80 mm[Hg] Unive rsity of [facility] Medical [place] Heart rate 2022-01-24 01:27:00 68 /min Universi ty of [facility] Body temperature 2022-01-24 01:27:00 36.67 Dianna [facility] Res[facility] rate 2022-01-24 01:27:00 20 /min [facility] Body height 2022-01-24 01:27:00 180.3 cm Universi ty of [place] [facility] [place] Body weight 2022-01-24 01:27:00 127.007 kg [facility] Procedures Procedure Date / Time Performed Performing Clinician Sour e RAPID INFLUENZA A/B 2022-10-11 02:26:00 Gabino W[facility] COVID-19 (ID NOW RAPID 2022-10-11 02:26:00 Gabino Womack [facility] TESTING) Medical Branch NOTICE OF PRIVACY 2022-10-11 02:10:30 Doctor Unassigned, No [facility] PRACTICES Name Medical Branch CONSENT/REFUSAL FOR 2022-10-11 02:10:04 Doctor Unassigned, No [facility] [place] DIAGNOSIS AND Name Medical Branch TREATMENT COMP. METABOLIC PANEL 2022-05-31 02:09:00 Josephine [facility] ([id number]) Medical Branch CBC WITH DIFF 2022-05-31 02:09:00 Lizzy [facility] URINALYSIS 2022-05-31 02:09:00 [facility] CONSENT/REFUSAL FOR 2022-05-31 01:05:43 Doctor Unassigned, No [facility] [place] DIAGNOSIS AND Name Medical Branch TREATMENT URINALYSIS 2022-01-24 03:27:00 Esvin Tinajero [facility] ASSIGNMENT OF BENEFITS 2022-01-24 01:05:13 Doctor Unassigned, No [facility] Name Medical Branch CONSENT/REFUSAL FOR 2022-01-24 01:04:57 Doctor Unassigned, No [facility] [place] DIAGNOSIS AND Name Medical Branch TREATMENT Encounters Start End Encounter Admission Attending Care Care Encounter Source Date/Time Date/Time Type Type Clinicians Facility Department ID 2022-10-10 2022-10-10 Emergency X JUAN ALBERTO [facility] ERT [id number] Univers 20:27:00 23:59:00 GABINO [facility] 2022-10-10 2022-10-10 Emergency Juan Alberto [facility] [id number] Univers 20:27:00 23:59:00 Gabino G[place] [id number] [facility] [id number] [facility] [id number] [facility] 084 Branch 2022-05-30 2022-05-30 [facility] [id number] Univers 20:19:00 23:28:00 [facility] 2022-05-30 2022-05-30 [facility] [id number] Univers 20:19:00 23:28:00 [facility] [id number] it y of [place] [id number] [facility] [id number] [address] ([facility]) 2022-01-23 2022-01-23 Emergency [facility] [id number] [facility] 20:29:00 22:56:00 [facility] ity [facility] 2022-01-23 2022-01-23 Emergency [facility] [id number] [facility] 20:29:00 22:56:00 [facility] [id number] ity of [place] [id number] [facility] [id number] [address] ([facility]) Results Test Description Test Time Test Comments Results Result Comments Source COMP. METABOLIC PANEL (34064) 2022-05-31 02:25:34 Test Item Value Reference Range Interpretation Comme nts NA (test code = 9932049764) 140 mmol/L 135-145 K (test code = 3108730569) 4.3 mmol/L 3.5-5 CL (test code = 0826865217) 107 mmol/L 98-108 CO2 TOTAL (test code = 25 mmol/L 23-31 1546515848) AGAP (test code = 2871866206) 2-16 BUN (test code = 2503762219) 16 mg/dL 7-23 GLUCOSE (test code = 7434781786) 84 mg/dL 70-110 CREATININE (test code = 0.90 mg/dL 0.6-1.25 7130875935) TOTAL BILI (test code = 0.6 mg/dL 0.1-1.3 7625973638) CALCIUM (test code = 5826901740) 9.5 mg/dL 8.6-10.6 T PROTEIN (test code = 6.8 g/dL 6.3-8.2 3207049760) ALBUMIN (test code = 8654390190) 4.4 g/dL 3.5-5 ALK PHOS (test code = 6061910874) 58 U/L 34-122 ALTv (test code = 1742-6) 36 U/L 5-50 AST(SGOT) (test code = 38 U/L 13-40 4043135627) eGFR (test code = 1678820867) mL/min/1.73m2 FRANSISCO (test code = FRANSISCO) Association [...] or urine or abnormalities in imaging tests). [facility] WITH [id number] 02:16:35 Test Item Value Reference Range Interpretation Comments WBC (test code = See_Comment [Automated 4543-2) message] The sy stem which generated this result transmitted reference range : 4.20 - 10.70 10*3/?L. The reference range was not used to interpret this result as normal/abnormal . RBC (test code = See_Comment [Automated 412-8) message] The sy stem which generated this [...] RDW-SD (test code = 41.4 fL 38.5-51.6 16051-7) RDW-CV (test code = 12.3 % 12.1-15.4 788-0) PLT (test code = See_Comment [Automated 777-3) message] The sy stem which generated this result transmitted reference range : 150 - 328 10*3/ ?L. The reference r josé miguel was not used to interpret this result as normal/abnormal . MPV (test code = 10.3 fL 9.8-13 21760-4) NRBC/100 WBC (test See_Comment [Automat ed code = 2364239080) message] The system which generated this result transmitted reference range : 0.0 - 10.0 /100 WBCs. The refer ence range was not u sed to interpret th is result as normal/abnormal . NRBC x10^3 (test code See_Comment [Auto mated = 4693177894) message] The s ystem which generated this result transmitted reference range : 10*3/?L. The reference range was not used to interpret this result as normal/abnormal . GRAN MAT (NEUT) % 59.3 % (test code = 770-8) IMM GRAN % (test code 0.40 % = 6800607684) LYMPH % (test code = 26.5 % 736-9) MONO % (test code = 7.5 % 5905-5) EOS % (test code = 5.2 % 713-8) BASO % (test code = 1.1 % 706-2) GRAN MAT x10^3(ANC) 4.35 10*3/uL 1.99-6.95 (test code = 7563889653) IMM GRAN x10^3 (test 0.03 10*3/uL 0-0.06 code = 8673272174) LYMPH x10^3 (test code 1.94 10*3/uL 1.09-3.23 = 731-0) MONO x10^3 (test code 0.55 10*3/uL 0.36-1.02 = 742-7) EOS x10^3 (test code = 0.38 10*3/uL 0.06-0.53 711-2) BASO x10^3 (test code 0.08 10*3/uL 0.01-0.09 = 704-7) Lab Interpretation Abnormal (test code = 77273-3) [facility]"
[2023-07-23] MEDS ORDERED: IPRATROPIUM BROM 0.5MG/2.5ML ONE (21:56)
[2023-07-23] MEDS ORDERED: ALBUTEROL 2.5 MG/3 ML NEB SOL ONE (21:56)
--- NOTE | 2023-07-23 22:36 | RAD REPORT ---
EXAM DESCRIPTION: Filit Single View07/23/2023 10:23 pm CLINICAL HISTORY: Cough COMPARISON: July 21, 2023 FINDINGS: The lungs appear clear of acute infiltrate. Heart is normal size
--- NOTE | 2023-07-23 22:54 | EDPHYS ---
Physician Documentation [facility] Name: Daniel Coronel Age: 27 yrs Sex: Male : 1995 Arrival Date: 07/23/2023 Time: 20:47 Bed 6 Private MD: ED Physician Trav Ferraro HPI: 07/23 22:51 This 27 yrs old Male presents to ER via Ambulatory with complaints of Shortness Of kb Breath, Chest Congestion. 22:51 Patient is a 27-year-old male who presents for cough, congestion and fever that started kb 3 days ago. Patient was seen here on the onset of symptoms and tested negative for flu, COVID and had a normal chest x-ray. States symptoms have persisted.. Historical: - Allergies: 21:25 Amoxicillin; cm10 21:25 TETRACYCLINES; cm10 - PMHx: 21:25 Irritable bowel syndrome; cm10 - PSHx: 21:25 Cholecystectomy; gastric sleeve; cm10 - Immunization history:: Adult Immunizations unknown. - Social history:: Smoking status: Patient denies any tobacco usage or history of. ROS: 22:51 Cardiovascular: Negative for chest pain, palpitations, and edema, kb 22:51 Constitutional: Positive for fever, 22:51 ENT: Positive for rhinorrhea, sinus congestion, 22:51 Respiratory: Positive for cough, 22:51 All other systems are negative, Exam: 22:51 Constitutional: This is a well developed, well nourished patient who is awake, alert, kb and in no acute distress. Head/Face: Normocephalic, atraumatic. ENT: Moist Mucous membranes Cardiovascular: Regular rate Respiratory: Respirations even and unlabored. No increased work of breathing. Talking in full sentences Skin: Warm, dry with normal turgor. Normal color. MS/ Extremity: Pulses equal, no cyanosis. Neurovascular intact. Full, normal range of motion. Neuro: Awake and alert, GCS 15, oriented to person, place, time, and situation. Moves all extremities. Normal gait. Vital Signs: 21:23 BP 114 / 78; Pulse 88; Resp 16; Temp 98; Pulse Ox 100% on R/A; Weight 127.01 kg; Height cm10 5 ft. 10 in. ; Pain 8/10; 21:23 Body Mass Index 40.18 (127.01 kg, 177.8 cm) cm10 21:23 Pain Scale: Adult cm10 MDM: 21:21 Patient medically screened. kb 22:52 Differential diagnosis: pneumonia, COVID, flu, URI. Antibiotic administration: Not kb indicated, the patient does not have an appreciated infiltrate. Data reviewed: vital signs, nurses notes. I considered the following discharge prescriptions or medication management in the emergency department I discussed and recommended Over The Counter medications, Antibiotics: At this time antibiotics are not recommended. Counseling: I had a detailed discussion with the patient and/or guardian regarding the historical points, exam findings, and any diagnostic results supporting the discharge/admit diagnosis, lab results, radiology results, the need for outpatient follow up, a family practitioner, to return to the emergency department if symptoms worsen or persist or if there are any questions or concerns that arise at home. 07/23 21:34 Order name: COVID-19 SARS RT PCR; Complete Time: 22:46 kb 07/23 21:34 Order name: Flu; Complete Time: 22:36 kb 07/23 21:34 Order name: Chest Single View XRAY; Complete Time: 22:38 kb Administered Medications: 21:56 Drug: Albuterol Inhalation 2.5 mg Inhalation once Route: Inhalation; bp 21:56 Drug: Ipratropium Inhalation Aerosol 0.5 mg Inhalation once Route: Inhalation; bp Disposition: 07/24 03:07 Co-signature as Attending Physician, Trav Ferraro MD I agree with the assessment sp4 and plan of care. I reviewed the patient's care provided by the Advanced Practice Provider and agree with the diagnosis and treatment plan. Disposition Summary: 07/23/23 22:53 Discharge Ordered Notes: Location: Home kb Condition: Stable kb Diagnosis - Acute upper respiratory infection, unspecified kb Followup: kb - With: Emergency Department - When: As needed - Reason: Worsening of condition Followup: kb - With: Private Physician - When: 2 - 3 days - Reason: Recheck today's complaints, Continuance of care, Re-evaluation by your physician Discharge Instructions: - Discharge Summary Sheet kb - Upper Respiratory Infection, Adult, [id number]-fb-[id number] kb Forms: - Work release form kb - Medication Reconciliation Form kb - Thank You Letter kb - Antibiotic Education kb - Prescription Opioid Use kb - Patient Portal Instructions kb - Leadership Thank You Letter kb Signatures: Dispatcher [employer] Katherine Klein, SAND MILL OPERATOR-C SAND MILL OPERATOR-Yaya Kent, RN RN bp Trav Ferraro MD MD sp4 Radha Granado RN RN cm10
--- NOTE | 2023-07-23 22:54 | ER ---
Nurse's Notes [facility] Name: Daniel Coronel Age: 27 yrs Sex: Male : 1995 Arrival Date: 07/23/2023 Time: 20:47 Bed 6 Private MD: Diagnosis: Acute upper respiratory infection, unspecified Presentation: 07/23 21:23 Chief complaint: Patient states: was seen here on Saturday and was told that he probably cm10 had the flu. Pt states that he is back tonight because he is not feeling any better. Pt states that he has a productive cough. Coronavirus screen: Vaccine status: Patient reports being unvaccinated. Client denies travel out of the [place] in the last 14 days. Ebola Screen: Patient denies travel to an Ebola-affected area in the 21 days before illness onset. No symptoms or risks identified at this time. Initial Sepsis Screen: Does the patient meet any 2 criteria? No. Patient's initial sepsis screen is negative. Does the patient have a suspected source of infection? No. Patient's initial sepsis screen is negative. Risk Assessment: Do you want to hurt yourself or someone else? Patient reports no desire to harm self or others. Onset of symptoms was July 23, 2023. 21:23 Method Of Arrival: Ambulatory 10 21:23 Acuity: ALY 4 cm10 Triage Assessment: 23:00 General: Appears in no apparent distress. Behavior is calm, cooperative, appropriate bp for age. Respiratory: Reports shortness of breath at rest Onset: The symptoms/episode began/occurred today, the patient reports symptoms have resolved. Historical: - Allergies: 21:25 Amoxicillin; cm10 21:25 TETRACYCLINES; cm10 - PMHx: 21:25 Irritable bowel syndrome; cm10 - PSHx: 21:25 Cholecystectomy; gastric sleeve; cm10 - Immunization history:: Adult Immunizations unknown. - Social history:: Smoking status: Patient denies any tobacco usage or history of. Screenin:20 [facility] ED Fall Risk Assessment (Adult) History of falling in the last 3 months, bp including since admission No falls in past 3 months (0 pts). Abuse screen: Denies threats or abuse. Denies injuries from another. Nutritional screening: No deficits noted. Tuberculosis screening: No symptoms or risk factors identified. Assessment: 23:20 General: PT DC HOME. Pain: Denies pain. Cardiovascular: Rhythm is sinus rhythm. bp Respiratory: Airway is patent Respiratory effort is even, unlabored, Breath sounds are clear bilaterally. Vital Signs: 21:23 BP 114 / 78; Pulse 88; Resp 16; Temp 98; Pulse Ox 100% on R/A; Weight 127.01 kg; Height cm10 5 ft. 10 in. ; Pain 8/10; 21:23 Body Mass Index 40.18 (127.01 kg, 177.8 cm) cm10 21:23 Pain Scale: Adult cm10 ED Course: 21:20 Patient arrived in ED. gm2 21:21 Katherine Fernandes FNP-C is [facility]. kb 21:21 Trav Ferraro MD is Attending Physician. kb 21:25 Triage completed. cm10 21:25 Arm band placed on Patient placed in an exam room, on a stretcher. cm10 21:39 Yaya Jones, RN is Primary Nurse. bp 22:25 Chest Single View XRAY In Process Unspecified. EDMS 23:15 Patient has correct armband on for positive identification. Bed in low position. Call bp light in reach. Side rails up X2. Adult w/ patient. 23:15 No provider procedures requiring assistance completed. Patient did not have IV access bp during this emergency room visit. Administered Medications: 21:56 Drug: Albuterol Inhalation 2.5 mg Inhalation once Route: Inhalation; bp 21:56 Drug: Ipratropium Inhalation Aerosol 0.5 mg Inhalation once Route: Inhalation; bp Medication: 23:20 VIS not applicable for this client. bp Outcome: 22:53 Discharge ordered by . kb 23:15 Discharged to home ambulatory, bp 23:15 Condition: stable 23:15 Discharge instructions given to patient, Instructed on discharge instructions, follow up and referral plans. Demonstrated understanding of instructions, follow-up care, 23:23 Patient left the ED. bp Signatures: Dispatcher [employer] EDMS Katherine Fernandes FNP-C FNP-Ckb Peltier, Brian, RN Radha Martinez RN RN Lynn Nolasco gm2
[2023-07-23 23:28] VITALS: BP 114/78; TEMP 98; O2SAT 100
== END 2023-07-23 23:23 | disposition home or self-care (01) ==
LOC: ER 20:47
DX: J06.9 Acute upper respiratory infection, unspecified (principal); Z11.52 Encounter for screening for COVID-19; Z88.1 Allergy status to other antibiotic agents
CPT/HCPCS: 87635; 87804 ×2; 71045; 99284; J7613; J7644